=== PATIENT | male | born 1970 | race Caucasian/White ===

== ENCOUNTER → 2019-08-04 10:38 | Outpatient (CLI) | payer OTHER, SELFPAY ==
[2019-08-04 12:26] LABS: Absolute Neutrophil Count 4.8 X10^3/uL (2.0-7.7); Basophil# 0.08 X10^3/uL; Eosinophil# 0.37 X10^3/uL; Eosinophils% 4.6 % (0-5); Hemoglobin 15.7 g/dL (13.0-16.5); Lymphocyte % 27.3 % (19-41); Mean Corp Hgb Conc 33.4 g/dL (32-36); Mean Corpuscular Hgb 28.7 pg (27.0-32.0); Mean Corpuscular Volume 85.9 fL (80-94); Mean Platelet Vol. 10.4 fl (6.2-12.0); Monocyte# 0.59 X10^3/uL; Monocyte% 7.3 % (0-10); NRBC Flagged by Analyzer 0 % (0-5); Neutrophil # 4.79 X10^3/uL (2.7-7.7); Neutrophil % 59.6 % (47-70); Platelet Count 283 K/mm3 (150-450); RBC Distribution Width CV 12.9 % (11.6-14.6); RBC Distribution Width SD 40.4 fl (35.1-43.9); Red Blood Count 5.47 M/mm3 (4.6-6.2); White Blood Count 8.1 K/mm3 (4.4-11.0)
[2019-08-04 12:39] LABS: ALB/GLOB Ratio 0.8 RATIO (0.9-2.4); AST(SGOT) 19 U/L (15-37); Alanine Aminotransfer ALT/SGPT 30 U/L (16-61); Albumin, Serum 3.6 g/dL (3.2-5.0); Alkaline Phosphatase 102 U/L (45-117); Anion Gap 7 (5-15); BUN 23 mg/dL (7-18); BUN/Creat Ratio 20.9 RATIO (10-20); Calcium,Total 8.9 mg/dL (8.5-10.1); Chloride 106 mmol/L (98-107); Cholesterol 162 mg/dL (200); EST Glomerular Filtration Rate 75 mL/min (>60); Est Glom Filt Rate - Afr Amer 91 mL/min (>60); Globulin 4.5 g/dL (2.2-4.2); Glucose 95 mg/dL (74-106); High Density Lipoprotein 34 mg/dL; PSA,Total - Annual Screen 1.35 ng/mL (0.00-4.00); Potassium 3.8 mmol/L (3.5-5.1); Protein, Total 8.1 g/dL (6.4-8.2); Sodium Level 137 mmol/L (136-145); Triglycerides 354 mg/dL; Very Low Density Lipoprotein 71 mg/dL (5-40)
[2019-08-04 12:44] LABS: Microalbumin,Random Urine 10.9 mg/L (NO RANGE EST.); Microalbumin:Creatinine Ratio 5.2 mg/g CRE (<30 mg/g CRE)
== END ==
PROVIDERS: Family Provider Family Medicine; PCP Family Medicine; Visit Provider Family Medicine
DX: Z00.00 Encounter for general adult medical examination without abnormal findings (principal); I10 Essential (primary) hypertension; Z12.5 Encounter for screening for malignant neoplasm of prostate
CPT/HCPCS: 36415; 80053; 80061; 82043; 82570; 84153; 85025; G0103

== ENCOUNTER 2019-09-30 06:02 | Day surgery (SDC) | payer OTHER, SELFPAY ==
[2019-09-30] VITALS (8 sets, daily range): BP systolic 102–127; BP diastolic 71–88; PULSE 66–83; RESP 16; TEMP 36.2–36.9; O2SAT 92–100; BMI 36.8
--- NOTE | 2019-09-30 06:26 | PCM.HP.STD ---
Problem List (1) Screening for intestinal cancer Status: Acute History of Present Illness Date of Admission: 09/30/19 The patient is a 49 year old M who presents today for screening colonoscopy. He denies bright red blood per rectum or melena. No abdominal pain. No change in body habitus. He has never had a previous colonoscopy. Past Medical History Allergies RAGWEED Allergy (Uncoded 09/26/19 11:33) Chest tightness Home Medications: Ambulatory Orders Medication Instructions Recorded Amlodipine Besylate/Benazepril 1 ea PO DAILY 09/26/19 [Amlodipine-Benazepril 10-40 mg] Cetirizine HCl [Zyrtec] 10 mg PO DAILY 09/26/19 Multivitamin/Iron/Folic Acid 1 ea PO DAILY 09/26/19 [Centrum Adults Tablet] Pravastatin [Pravachol] 40 mg PO QHS 09/26/19 Smoking Status: Unknown if ever smoked Tobacco Use: Non-smoker Review of Systems HEENT: Denies: Difficulty Swallowing Cardiovascular: Denies: Chest Pain Respiratory: Denies: Cough Gastrointestinal: Denies: Abdominal Pain Endocrine: Denies: Change in Body Habitus VTE Information - Inpt Only VTE Present on Admission: No Patient Problems: Active and Suspected Problems Screening for intestinal cancer (Acute) - Physical Exam General: Alert, Oriented x3, Cooperative Oral: Moist Mucosa Lungs: Clear to auscultation Cardiovascular: Regular rate, Regular Rhythm Abdomen: Bowel Sounds Present, Soft, Non Tender Psych/Mental Status: Anxious Assessment/Plan All Active Problems Screening for intestinal cancer (Acute) I recommend for the patient today is screening colonoscopy with possible biopsy or polypectomy is indicated. He is aware of the technique, benefits, risks, alternatives. He presents via our open access program today. We will proceed as noted. Parker Grant M.D., F.A.C.S.
[2019-09-30] MEDS: Lactated Ringers 1,000 ML 100 ML IV (06:52)
--- NOTE | 2019-09-30 07:00 | COLBX_PTH ---
PATIENT: TOM SALAZAR LOC: EN U#:[id number] AGE/SX: 49/M ROOM: RE09/30/[address]: Dr. Parker Grant MD : 1970 BED: DIS: 09/30/2019 SPEC #: [id number] RECD: 09/30/19 11:12 STATUS: SAE TEJ #: [id number] KAROLINA: 09/30/19 07:[address]: Parker Grant DEPT: SURGICAL PATHOLOGY RECD BY: Paco Evans ENTERED: 09/30/19 12:29 SP TYPE: COLON BX OTHR DR: Dr. Sheldon Khan MD Tissues: Transverse colon Procedures: Surgery Specimen Level IV HEADER OPERATION: Colonoscopy - open access (MOD) PRE-OP DIAGNOSIS: Screening TISSUE SUBMITTED: Biopsy of mid transverse colon polyp MICROSCOPIC DIAGNOSIS Mid transverse colon polyp, biopsy: Fragments of colonic mucosa, no pathologic diagnosis. See comment. RUSLAN:carlos 10/01/19 COMMENT Prominent lymphoid aggregates are noted, favor benign. MICROSCOPIC DESCRIPTION Slides are reviewed. GROSS DESCRIPTION Received in fixative is one container labeled with the patient's name and designated biopsy of mid transverse colon polyp. The specimen consists of multiple irregular fragments of light schultz soft tissue that in aggregate measure 1 x 0.3 x 0.1 cm. The specimen is totally submitted in one cassette. / SJ:carlos 09/30/19 TC:4 CPT: 83364
--- NOTE | 2019-09-30 08:02 | OP.COLON_ITS ---
Patient Name: Vasyl Cuellar Procedure Date: 09/30/2019 6:57 AM Date of : 1970 Age: 49 Procedure: Colonoscopy Indications: Screening for colorectal malignant neoplasm Providers: Parker Grant MD Referring MD: Sheldon Khan Medicines: Midazolam 3.5 mg IV, Meperidine 100 mg IV Patient Profile: Last Colonoscopy: none. The patient's first colonoscopy is today. Complications: No immediate complications. Procedure: Pre-Anesthesia Assessment: - Prior to the procedure, a History and Physical was performed, and patient medications and allergies were reviewed. The patient's tolerance of previous anesthesia was also reviewed. The risks and benefits of the procedure and the sedation options and risks were discussed with the patient. All questions were answered, and informed consent was obtained. Prior Anticoagulants: The patient has taken no previous anticoagulant or antiplatelet agents. ASA Grade Assessment: II - A patient with mild systemic disease. After reviewing the risks and benefits, the patient was deemed in satisfactory condition to undergo the procedure. After I obtained informed consent, the scope was passed under direct vision. Throughout the procedure, the patient's blood pressure, pulse, and oxygen saturations were monitored continuously. The adult colonoscope was introduced through the anus and advanced to the cecum, identified by appendiceal orifice and ileocecal valve. The colonoscopy was performed without difficulty. The patient tolerated the procedure well. The quality of the bowel preparation was good. The ileocecal valve and the appendiceal orifice were photographed. Moderate Sedation: Moderate (conscious) sedation was personally administered by the endoscopist. The following parameters were monitored: oxygen saturation, heart rate, blood pressure, and response to care. Total physician intraservice time was 15 minutes. Scope In: 7:08:25 AM Scope Withdrawal Time 0 hours 10 minutes 18 seconds Scope Out: 7:25:57 AM Total Procedure Duration Time 0 hours 17 minutes 32 seconds Findings: The digital rectal exam findings include non-thrombosed external hemorrhoids, non-thrombosed internal hemorrhoids, internal hemorrhoids that prolapse with straining, but spontaneously regress to the resting position (Grade II) and enlarged prostate. A 3 mm polyp was found in the mid descending colon. The polyp was sessile. The polyp was removed with a cold biopsy forceps. Resection and retrieval were complete. Impression: - Non-thrombosed external hemorrhoids, non-thrombosed internal hemorrhoids, internal hemorrhoids that prolapse with straining, but spontaneously regress to the resting position (Grade II) and enlarged prostate found on digital rectal exam. - Several 3 mm polyp in the mid descending colon, removed with a cold biopsy forceps. Resected and retrieved.See photograph of very small minimally raised areas. Possibly polpys, possibly normal mucosa Recommendation: - Await pathology results. - Repeat colonoscopy in 5 years for surveillance based on pathology results. - Telephone my office for pathology results in 1 week. - Discharge patient to home. - Resume previous diet. - Continue present medications. Procedure Code(s): --- Professional --- 33382, Colonoscopy, flexible; with biopsy, single or multiple 53128, 59, Moderate sedation services provided by the same physician or other qualified health grounds caretaker performing the diagnostic or therapeutic service that the sedation supports, requiring the presence of an independent trained observer to assist in the monitoring of the patient's level of consciousness and physiological status; initial 15 minutes of intraservice time, patient age 5 years or older Diagnosis Code(s): --- Professional --- Z12.11, Encounter for screening for malignant neoplasm of colon D12.4, Benign neoplasm of descending colon K64.1, Second degree hemorrhoids K64.4, Residual hemorrhoidal skin tags N40.0, Benign prostatic hyperplasia without lower urinary tract symptoms CPT copyright 2017 [employer]. All rights reserved. The codes documented in this report are preliminary and upon shift lab technician review may be revised to meet current compliance requirements. Parker Grant MD 09/30/2019 8:02:16 AM This report has been signed electronically. Number of Addenda: 0 Note Initiated On: 09/30/2019 6:57 AM
== END 2019-09-30 08:16 | disposition home or self-care (01) ==
LOC: EN 06:04 → AC 06:06
PROVIDERS: Family Provider Family Medicine; PCP Family Medicine; Referring Provider Family Medicine; Visit Provider Surgery
PROC: 0DJD8ZZ Inspection of Lower Intestinal Tract, Via Natural or Artificial Opening Endoscopic (ICD-10-PCS; CPT 45378; principal; 2019-09-30 06:55)
DX: Z12.11 Encounter for screening for malignant neoplasm of colon (principal); D12.4 Benign neoplasm of descending colon; K64.1 Second degree hemorrhoids; K64.4 Residual hemorrhoidal skin tags; N40.0 Benign prostatic hyperplasia without lower urinary tract symptoms; Z79.899 Other long term (current) drug therapy
CPT/HCPCS: 45380; 88305; 99152; 99153; J7120

== ENCOUNTER → 2020-02-05 09:50 | Outpatient (CLI) | payer OTHER, SELFPAY ==
[2019-09-30 06:38] VITALS: BMI 36.8
--- NOTE | 2020-02-05 09:54 | RAD_ITS ---
STUDY: X-RAY - ESOPHAGUS (BARIUM SWALLOW) WITH FLUOROSCOPY REASON FOR EXAM: Male, 49 years old. DYSPHAGIA. OCCASIONALLY FOOD HANGS UP IN ESOPHAGUS W/ REFLUX/VOMITING. 14 IMAGES, 25 SEC. FL TECHNIQUE: 16 view(s) of the esophagus were obtained following swallowing of barium. FLUOROSCOPY TIME (if supplied): (0:25) minutes/seconds COMPARISON: None. FINDINGS: There is no demonstrated esophageal foreign body. There is no demonstrated stricture or mucosal abnormality. Normal gastroesophageal junction, without a demonstrated hiatal hernia. The patient ingested a 12 mm tablet of barium without any difficulty. Normal visualized aortic arch and descending thoracic aorta. Normal visualized pulmonary parenchyma. There are diffuse degenerative changes of the visualized thoracic spine. RAD/Esophagus Dual Contrast IMPRESSION: Normal plain film x-ray examination (barium swallow) of the esophagus. Electronically Signed: Víctor Baltazar, at 11:02 EDT , Service support ,
== END ==
PROVIDERS: PCP Family Medicine; Referring Provider Family Medicine; Visit Provider Family Medicine
DX: R13.10 Dysphagia, unspecified (principal)
CPT/HCPCS: 74221

== ENCOUNTER → 2020-03-02 10:48 | Outpatient (CLI) | payer OTHER, SELFPAY ==
[2019-09-30 06:38] VITALS: BMI 36.8
[2020-03-02 12:04] LABS: ALB/GLOB Ratio 0.9 RATIO (0.9-2.4); AST(SGOT) 26 U/L (15-37); Alanine Aminotransfer ALT/SGPT 39 U/L (16-61); Albumin, Serum 3.8 g/dL (3.2-5.0); Alkaline Phosphatase 102 U/L (45-117); Anion Gap 7 (5-15); BUN 20 mg/dL (7-18); BUN/Creat Ratio 19.6 RATIO (10-20); Calcium,Total 8.8 mg/dL (8.5-10.1); Chloride 106 mmol/L (98-107); Creatinine, Serum 1.02 mg/dL (0.70-1.30); EST Glomerular Filtration Rate 82 mL/min (>60); Est Glom Filt Rate - Afr Amer 99 mL/min (>60); Globulin 4.1 g/dL (2.2-4.2); Glucose 115 mg/dL (74-106); Potassium 3.4 mmol/L (3.5-5.1); Protein, Total 7.9 g/dL (6.4-8.2); Sodium Level 138 mmol/L (136-145)
== END ==
PROVIDERS: PCP Family Medicine; Referring Provider Family Medicine; Visit Provider Family Medicine
DX: I10 Essential (primary) hypertension (principal)
CPT/HCPCS: 36415; 80053

== ENCOUNTER → 2020-09-08 10:39 | Outpatient (CLI) | payer OTHER, SELFPAY ==
[2019-09-30 06:38] VITALS: BMI 36.8
[2020-09-08 12:51] LABS: ALB/GLOB Ratio 0.9 RATIO (0.9-2.4); AST(SGOT) 16 U/L (15-37); Alanine Aminotransfer ALT/SGPT 30 U/L (16-61); Albumin, Serum 3.5 g/dL (3.2-5.0); Alkaline Phosphatase 109 U/L (45-117); Anion Gap 7 (5-15); BUN 17 mg/dL (7-18); BUN/Creat Ratio 15.3 RATIO (10-20); Calcium,Total 9.1 mg/dL (8.5-10.1); Chloride 103 mmol/L (98-107); Cholesterol 135 mg/dL (200); Creatinine, Serum 1.11 mg/dL (0.70-1.30); EST Glomerular Filtration Rate 74 mL/min (>60); Est Glom Filt Rate - Afr Amer 89 mL/min (>60); Globulin 3.9 g/dL (2.2-4.2); Glucose 98 mg/dL (74-106); High Density Lipoprotein 32 mg/dL; Potassium 3.5 mmol/L (3.5-5.1); Protein, Total 7.4 g/dL (6.4-8.2); Sodium Level 137 mmol/L (136-145); Triglycerides 356 mg/dL; Very Low Density Lipoprotein 71 mg/dL (5-40)
[2020-09-08 12:52] LABS: Microalbumin,Random Urine 8.8 mg/L (NO RANGE EST.); Microalbumin:Creatinine Ratio 3.8 mg/g CRE (<30 mg/g CRE)
== END ==
PROVIDERS: PCP Family Medicine; Referring Provider Family Medicine; Visit Provider Family Medicine
DX: I10 Essential (primary) hypertension (principal)
CPT/HCPCS: 36415; 80053; 80061; 82043; 82570

== ENCOUNTER → 2021-06-22 09:24 | Outpatient (CLI) | payer OTHER, SELFPAY ==
[2019-09-30 06:38] VITALS: BMI 36.8
[2021-06-22 10:15] LABS: Absolute Lymphocyte Count 2.46 X10^3/uL (0.83-4.51); Absolute Neutrophil Count 6.1 X10^3/uL (2.0-7.7); Basophil# 0.06 X10^3/uL; Basophil% 0.6 % (0-1); Eosinophils% 6.1 % (0-5); Hematocrit 46.2 % (40-54); Lymphocyte # 2.46 X10^3/ul (0.83-4.51); Lymphocyte % 24.8 % (19-41); Mean Corp Hgb Conc 34.6 g/dL (32-36); Mean Corpuscular Hgb 29.8 pg (27.0-32.0); Mean Platelet Vol. 10.3 fl (6.2-12.0); Monocyte# 0.68 X10^3/uL; Monocyte% 6.9 % (0-10); NRBC Flagged by Analyzer 0 % (0-5); Neutrophil # 6.06 X10^3/uL (2.7-7.7); Neutrophil % 61.2 % (47-70); Platelet Count 299 K/mm3 (150-450); RBC Distribution Width CV 13.2 % (11.6-14.6); RBC Distribution Width SD 41.1 fl (35.1-43.9); Red Blood Count 5.37 M/mm3 (4.6-6.2); White Blood Count 9.9 K/mm3 (4.4-11.0)
[2021-06-22 10:40] LABS: Hemoglobin A1c 5.5 % (3.8-5.6)
[2021-06-22 10:51] LABS: ALB/GLOB Ratio 0.9 RATIO (0.9-2.4); AST(SGOT) 18 U/L (15-37); Alanine Aminotransfer ALT/SGPT 36 U/L (16-61); Albumin, Serum 3.7 g/dL (3.2-5.0); Alkaline Phosphatase 117 U/L (45-117); Anion Gap 9 (5-15); BUN 19 mg/dL (7-18); BUN/Creat Ratio 17.8 RATIO (10-20); Calcium,Total 9.3 mg/dL (8.5-10.1); Chloride 105 mmol/L (98-107); Cholesterol 120 mg/dL (200); Creatinine, Serum 1.07 mg/dL (0.70-1.30); EST Glomerular Filtration Rate 77 mL/min (>60); Est Glom Filt Rate - Afr Amer 93 mL/min (>60); Globulin 4.1 g/dL (2.2-4.2); Glucose 113 mg/dL (74-106); High Density Lipoprotein 31 mg/dL; Potassium 3.7 mmol/L (3.5-5.1); Protein, Total 7.8 g/dL (6.4-8.2); Sodium Level 138 mmol/L (136-145); Triglycerides 268 mg/dL; Very Low Density Lipoprotein 54 mg/dL (5-40)
[2021-06-22 12:02] LABS: Hepatitis C Antibody Non-Reactive (Nonreactive)
[2021-06-22 13:53] LABS: Microalbumin,Random Urine 14.1 mg/L (NO RANGE EST.); Microalbumin:Creatinine Ratio 5.5 mg/g CRE (<30 mg/g CRE)
== END ==
PROVIDERS: PCP Family Medicine; Referring Provider Family Medicine; Visit Provider Family Medicine
DX: M54.2 Cervicalgia (principal); I10 Essential (primary) hypertension; E78.00 Pure hypercholesterolemia, unspecified; E66.01 Morbid (severe) obesity due to excess calories; Z11.59 Encounter for screening for other viral diseases
CPT/HCPCS: 36415; 80053; 80061; 82043; 82570; 83036; 85025; 86803

== ENCOUNTER 2021-12-08 16:12 | Outpatient (CLI) | payer OTHER, SELFPAY ==
[2021-12-08 18:05] LABS: Anion Gap 8 (5-15); BUN 23 mg/dL (7-18); BUN/Creat Ratio 21.7 RATIO (10-20); Calcium,Total 9.1 mg/dL (8.5-10.1); Chloride 107 mmol/L (98-107); Creatinine, Serum 1.06 mg/dL (0.70-1.30); EST Glomerular Filtration Rate 77 mL/min (>60); Est Glom Filt Rate - Afr Amer 94 mL/min (>60); Glucose 87 mg/dL (74-106); Potassium 3.9 mmol/L (3.5-5.1); Sodium Level 136 mmol/L (136-145)
== END 2021-12-08 23:59 | disposition short-term general hospital (02) ==
PROVIDERS: PCP Family Medicine; Referring Provider Family Medicine; Visit Provider Family Medicine
DX: J39.9 Disease of upper respiratory tract, unspecified (principal); I10 Essential (primary) hypertension
CPT/HCPCS: 36415; 80048

== ENCOUNTER → 2022-06-08 | Outpatient (CLI) | payer OTHER, SELFPAY ==
[2022-06-08 18:21] LABS: ALB/GLOB Ratio 0.9 RATIO (0.9-2.4); AST(SGOT) 18 U/L (15-37); Alanine Aminotransfer ALT/SGPT 34 U/L (16-61); Albumin, Serum 3.7 g/dL (3.2-5.0); Alkaline Phosphatase 115 U/L (45-117); Anion Gap 6 (5-15); BUN 24 mg/dL (7-18); BUN/Creat Ratio 21.2 RATIO (10-20); Chloride 108 mmol/L (98-107); Creatinine, Serum 1.13 mg/dL (0.70-1.30); EST Glomerular Filtration Rate 72 mL/min (>60); Est Glom Filt Rate - Afr Amer 87 mL/min (>60); Globulin 3.9 g/dL (2.2-4.2); Glucose 107 mg/dL (74-106); Protein, Total 7.6 g/dL (6.4-8.2); Sodium Level 137 mmol/L (136-145)
[2022-06-08 18:39] LABS: Microalbumin,Random Urine 17.4 mg/L (NO RANGE EST.)
== END | disposition home or self-care (01) ==
LOC: MTLAB 16:23
PROVIDERS: PCP Family Medicine; Referring Provider Family Medicine; Visit Provider Family Medicine
DX: Z00.00 Encounter for general adult medical examination without abnormal findings (principal); I10 Essential (primary) hypertension
CPT/HCPCS: 36415; 80053; 82043; 82570

== ENCOUNTER → 2022-12-11 | Outpatient (CLI) | payer OTHER, SELFPAY ==
[2022-12-11 18:33] LABS: Anion Gap 10 (5-15); BUN 21 mg/dL (7-18); BUN/Creat Ratio 21.5 RATIO (10-20); Calcium,Total 9.4 mg/dL (8.5-10.1); Chloride 107 mmol/L (98-107); Creatinine, Serum 0.98 mg/dL (0.70-1.30); EST Glomerular Filtration Rate 85 mL/min (>60); Est Glom Filt Rate - Afr Amer 103 mL/min (>60); Glucose 108 mg/dL (74-106); Potassium 3.9 mmol/L (3.5-5.1); Sodium Level 139 mmol/L (136-145)
== END | disposition home or self-care (01) ==
LOC: MFPLAB 14:41
PROVIDERS: PCP Family Medicine; Visit Provider Family Medicine
DX: I10 Essential (primary) hypertension (principal)
CPT/HCPCS: 36415; 80048

== ENCOUNTER → 2023-06-13 | Outpatient (CLI) | payer OTHER, SELFPAY ==
[2023-06-13 10:55] LABS: Microalbumin,Random Urine 10.4 mg/L (NO RANGE EST.)
[2023-06-13 10:58] LABS: ALB/GLOB Ratio 0.8 RATIO (0.9-2.4); AST(SGOT) 16 U/L (15-37); Alanine Aminotransfer ALT/SGPT 26 U/L (16-61); Albumin, Serum 3.5 g/dL (3.2-5.0); Alkaline Phosphatase 125 U/L (45-117); Anion Gap 7 (5-15); BUN 16 mg/dL (7-18); BUN/Creat Ratio 16.9 RATIO (10-20); Calcium,Total 8.7 mg/dL (8.5-10.1); Chloride 108 mmol/L (98-107); Cholesterol 115 mg/dL (200); Creatinine, Serum 0.95 mg/dL (0.70-1.30); EST Glomerular Filtration Rate 88 mL/min (>60); Est Glom Filt Rate - Afr Amer 106 mL/min (>60); Globulin 4.2 g/dL (2.2-4.2); Glucose 94 mg/dL (74-106); High Density Lipoprotein 29 mg/dL; PSA,Total - Annual Screen 1.34 ng/mL (0.00-4.00); Potassium 3.7 mmol/L (3.5-5.1); Protein, Total 7.7 g/dL (6.4-8.2); Sodium Level 137 mmol/L (136-145); Triglycerides 167 mg/dL; Very Low Density Lipoprotein 33 mg/dL (5-40)
== END | disposition home or self-care (01) ==
LOC: MFPLAB 09:12
PROVIDERS: PCP Family Medicine; Visit Provider Family Medicine
DX: I10 Essential (primary) hypertension (principal); Z12.5 Encounter for screening for malignant neoplasm of prostate
CPT/HCPCS: 36415; 80053; 80061; 82043; 82570; 84153; G0103

== ENCOUNTER → 2023-12-17 | Outpatient (CLI) | payer OTHER, SELFPAY ==
--- OUTSIDE RECORDS SUMMARY | 2023-12-17 16:39 | XMS RPT_ITS | CCD ---
Author Name Unknown Address [address] [place] [id number] Organization [facility] Care Team Providers Care Principal Technical Specialist Name Role Phone Dereje Zavala Primary Care Provider [phone] Medications Completed/Discontinued Medications Medication Drug Class(es) Dates Sig (Normalized) Sig (Original) amLODIPine 10 mg / benazepril hydrochloride 40 mg oral capsule (2 sources) Dihydropyridine Calcium Channel Gino, Angiotensin Converting Enzyme Inhibitor Start: 06-26-2023 amLODIPine-Benaze pril 10-40 mg per capsule atorvastatin 40 mg oral tablet (2 sources) HMG-CoA Reductase Inhibitor Start: 08-26-2023 atorvastatin (LIPITOR) 40 mg tablet benzonatate 100 mg oral capsule (2 sources) Non-narcotic Antitussive Start: 09-04-2023 take 2 capsules by mouth every eight hours as needed benzonatate (TESSALON PERLE) 100 mg capsule Take 2 capsules by mouth three times a day as needed. 30 capsule 0 09/04/2023 Active Problems Problem Classification Problem Date Documented Da te Episodic/Chronic Other upper respiratory infections (1 source) Upper respiratory infection; Translations: [Acute upper respiratory infection, unspecified] 09-04-2023 Episodic Residual codes; unclassified (1 source) Procedure not done; Translations: [Procedure and treatment not carried out, unspecified reason] Episodic Results Test Name Value Interpretation Reference Range Facil ity Vital Signs Date Time Vital Sign Value Performing Clinician Sudhakar smith 09-04-2023 11:49-0400 Body temperature 97.7 [degF] Ivon Christopher APRN.CNP Work Phone: [facility] 09-04-2023 11:49-0400 Body weight 116.12 kg Ivon Christopher APRN.CNP Work Phone: [facility] 09-04-2023 11:49-0400 Diastolic blood pressure 80 mm[Hg] Ivon Christopher APRN.CNP Work Phone: [facility] 09-04-2023 11:49-0400 Heart rate 72 /min Ivon Christopher APRN.CNP Work Phone: [facility] 09-04-2023 11:49-0400 Respiratory rate 16 /min Ivon Christopher APRN.TYRON Work Phone: [facility] 09-04-2023 11:49-0400 SaO2% (BldA) [Mass fraction] 98 % Ivon Christopher APRN.CNP Work Phone: [facility] 09-04-2023 11:49-0400 Systolic blood pressure 120 mm[Hg] Ivon Christopher APRN.CNP Work Phone: [facility] Encounters Encounter Date Encounter Type Care Provider Facility Start: 09-05-2023 Telephone encounter Darryl diaz APRN.CNP Work Phone: [facility] Plan of Treatment Date Care Activity Detail Author Start: 07-29-2029 Urine microalbumin profile DTaP,Tdap,Td Vaccine (2 - Td or Tdap) [facility] Start: 09-04-2023 End: 09-18-2023 SARS-CoV-2 (COVID-19) RNA [Presence] in Respiratory specimen by MELY with probe detection [facility] Work Phone: Immunizations Immunization Date Immunization Notes Care Provider Sonia limon 09-01-2020 influenza virus vacc ine, unspecified formulation Ivon Christopher APRN.PRINT PROJECT MANAGER Work Phone: [facility] Payers Date Payer Category Payer Private Health Insurance [employer] A ETNA CHOICE POS II [id number] 2021-Present [phone] [address] [place] [address] POS [id number] 2021 Private Health Insurance [employer] A ETNA POS [id number] 2021-Present [phone] [address] [place] [address] POS [id number] 2021 Private Health Insurance [id number] Social History Date Type Detail Facility Tobacco smoking status NHIS Tobacco smoking consumption unknown [facility] Work Phone: Start: 1970 Sex Assigned At Not on file [facility] Gender identity Not on file [facility] inic Note 09-05-2023 Telephone Encounter - Marizol Gutierrez MA - 09/05/2023 11:15 AM EDTTelephone Encounter - Darryl Yan APRN.CNP - 09/05/2023 7:12 AM EDT Note Date & Type Note Facility 09-05-2023 Miscellaneous Notes Formattin g of this note might be different from the original. Patient notified of results, verbalized understanding of information as listed below. Marizol Gutierrez MA You tested positive for COVID-19 Follow the CDC guidelines for isolation: 1. Everyone, regardless of vaccination status, should stay home for 5 days. 2. If you have no symptoms or your symptoms are resolving after 5 days, you can leave your house. 3. Continue to wear a mask around others for 5 additional days. If you have a fever, continue to stay home until your fever resolves, even if it is longer than 5 days. Please monitor your symptoms, and for any worrisome symptoms, call your primary care provider or schedule a visit with [facility]. A test is not recommended to return to work/school when meeting the above criteria. documented in this encounter [facility] Progress note 09-04-2023 Note Date & Type Note Facility 09-04-2023 Note HNO ID: [id number] Author: Ivon Christopher APRN.CNP Service: ? Author Type: Nurse Practitioner Type: Progress Notes Filed: 09/04/2023 12:01 PM Note Text: Subjective The history is provided by the patient. No computer language coder was used. HPI Vasyl Cuellar is a 53 year old male who presents today for CC of cough and congestion Symptoms include: Fever (=100.4F): No or Chills: No Cough: Yes Shortness of breath: No or Difficulty breathing: No Fatigue: Yes Muscle aches: No Headache: No New loss of smell or taste: No Sore throat: No Nasal congestion: Yes or Rhinorrhea: Yes Nausea: No or Vomiting: No Diarrhea: No OTC meds/remedies that patient has tried: acetaminophen and NSAIDs. High risk category assessment obese Exposures: Sick contacts? Yes Family or close contacts with confirmed/probable COVID-19 in last 14 days? No BP 120/80 Pulse 72 Temp 36.5 ?C (97.7 ?F) Resp 16 Wt 116.1 kg (256 lb) SpO2 98% History reviewed. No pertinent past medical history. I have confirmed and edited as necessary, the [facility] Review of Systems Constitutional: Negative for chills and fever. HENT: Negative for congestion, ear pain, sinus pain and sore throat. Respiratory: Negative for cough, sputum production, shortness of breath and wheezing. Cardiovascular: Negative for chest pain. Musculoskeletal: Negative for myalgias. Neurological: Negative for headaches. Objective Physical Exam Vitals and nursing note reviewed. Constitutional: Appearance: He is not toxic-appearing. HENT: Head: Normocephalic and atraumatic. Right Ear: Tympanic membrane, ear canal and external ear normal. Left Ear: Tympanic membrane, ear canal and external ear normal. Nose: Mucosal edema, congestion and rhinorrhea present. Right Sinus: No maxillary sinus tenderness or frontal sinus tenderness. Left Sinus: No maxillary sinus tenderness or frontal sinus tenderness. Mouth/Throat: Pharynx: Uvula midline. No oropharyngeal exudate or posterior oropharyngeal erythema. Tonsils: No tonsillar abscesses. Cardiovascular: Rate and Rhythm: Normal rate and regular rhythm. Heart sounds: Normal heart sounds. Pulmonary: Effort: Pulmonary effort is normal. Breath sounds: Normal breath sounds. No decreased breath sounds, wheezing, rhonchi or rales. Lymphadenopathy: Head: Right side of head: No submental, submandibular, tonsillar or preauricular adenopathy. Left side of head: No submental, submandibular, tonsillar or preauricular adenopathy. Cervical: No cervical adenopathy. Right cervical: No superficial cervical adenopathy. Left cervical: No superficial cervical adenopathy. Neurological: Mental Status: He is alert. ASSESSMENT/PLAN: 1. URI with cough and congestion - ICD9: 465.9, ICD10: J06.9 - Discussed viral etiology and rationale for treatment. - Symptomatic treatment with prn analgesia - Supportive care with fluids and rest Home isolation Testing ordered Comfort measures discussed - see patient instructions. When to seek higher level of care Notified in 12-24 hours with results, available on [employer] prn mucinex - COVID NAAT, UPPER RESPIRATORY, ROUTINE Diagnosis and treatment plan were discussed and questions were answered to the patient's satisfaction. Pt acknowledged understanding of concepts and follow up plan. Specific signs and symptoms that would indicate the need for higher level of care were discussed in detail warranting prompt ER evaluation. Ivon Christopher APRN.PRINT PROJECT MANAGER [facility] Instructions 09-04-2023 Patient Instructions Note Date & Type Note Facility 09-04-2023 Instructions Ivon Christopher APRN.PRINT PROJECT MANAGER - 09/04/2023 11:56 AM EDT covid and influenza test ordered You will be notified in 12-24 hours, results available on [employer] Home isolation until results are back Rest, increase water intake Motrin or Tylenol as needed for fever or pain. Salt water gargles, chloraseptic spray or lozenges as needed for sore throat. Warm beverages, honey. Nasal saline spray as needed Cool mist humidifier at night Tylenol (generic acetaminophen) 500 mg-2 tabs every 8 hrs. as needed for fever and aches Ibuprofen 600 mg (3-200mg tablets) every 6 hours -Mucinex (generic is fine) Guaifenesin 1200 mg twice daily to help with cough and to thin out mucus Tessalon Perles 1-2 every 8 hours, do not combine this with robitussin or delsym * Seek medical care immediately, call 911, go to ER if you have chest pain, difficulty breathing, shortness of breath, inability to swallow. documented in this encounter [facility] History of Present illness Narrative 09-04-2023 Ivon Christopher APRN.CNP - 09/04/2023 11:55 AM EDT Note Date & Type Note Facility 09-04-2023 History of Presen t illness Narrative Subjective The history is provided by the patient. No computer language coder was used. HPI Vasyl Cuellar is a 53 year old male who presents today for CC of cough and congestion Symptoms include: Fever (=100.4F): No or Chills: No Cough: Yes Shortness of breath: No or Difficulty breathing: No Fatigue: Yes Muscle aches: No Headache: No New loss of smell or taste: No Sore throat: No Nasal congestion: Yes or Rhinorrhea: Yes Nausea: No or Vomiting: No Diarrhea: No OTC meds/remedies that patient has tried: acetaminophen and NSAIDs. High risk category assessment obese Exposures: Sick contacts? Yes Family or close contacts with confirmed/probable COVID-19 in last 14 days? No BP 120/80 Pulse 72 Temp 36.5 C (97.7 F) Resp 16 Wt 116.1 kg (256 lb) SpO2 98% History reviewed. No pertinent past medical history. I have confirmed and edited as necessary, the [facility] Review of Systems Constitutional: Negative for chills and fever. HENT: Negative for congestion, ear pain, sinus pain and sore throat. Respiratory: Negative for cough, sputum production, shortness of breath and wheezing. Cardiovascular: Negative for chest pain. Musculoskeletal: Negative for myalgias. Neurological: Negative for headaches. Objective Physical Exam Vitals and nursing note reviewed. Constitutional: Appearance: He is not toxic-appearing. HENT: Head: Normocephalic and atraumatic. Right Ear: Tympanic membrane, ear canal and external ear normal. Left Ear: Tympanic membrane, ear canal and external ear normal. Nose: Mucosal edema, congestion and rhinorrhea present. Right Sinus: No maxillary sinus tenderness or frontal sinus tenderness. Left Sinus: No maxillary sinus tenderness or frontal sinus tenderness. Mouth/Throat: Pharynx: Uvula midline. No oropharyngeal exudate or posterior oropharyngeal erythema. Tonsils: No tonsillar abscesses. Cardiovascular: Rate and Rhythm: Normal rate and regular rhythm. Heart sounds: Normal heart sounds. Pulmonary: Effort: Pulmonary effort is normal. Breath sounds: Normal breath sounds. No decreased breath sounds, wheezing, rhonchi or rales. Lymphadenopathy: Head: Right side of head: No submental, submandibular, tonsillar or preauricular adenopathy. Left side of head: No submental, submandibular, tonsillar or preauricular adenopathy. Cervical: No cervical adenopathy. Right cervical: No superficial cervical adenopathy. Left cervical: No superficial cervical adenopathy. Neurological: Mental Status: He is alert. ASSESSMENT/PLAN: 1. URI with cough and congestion - ICD9: 465.9, ICD10: J06.9 - Discussed viral etiology and rationale for treatment. - Symptomatic treatment with prn analgesia - Supportive care with fluids and rest Home isolation Testing ordered Comfort measures discussed - see patient instructions. When to seek higher level of care Notified in 12-24 hours with results, available on [employer] prn mucinex - COVID NAAT, UPPER RESPIRATORY, ROUTINE Diagnosis and treatment plan were discussed and questions were answered to the patient's satisfaction. Pt acknowledged understanding of concepts and follow up plan. Specific signs and symptoms that would indicate the need for higher level of care were discussed in detail warranting prompt ER evaluation. Ivon Christopher APRN.CNP documented in this encounter [facility] History of Present illness Narrative 05-05-2022 Dilan Squires APRN.CNP - 05/05/2022 12:54 PM EDT Note Date & Type Note Facility 05-05-2022 History of Presen t illness Narrative Nontoxic-appearing male presents urgent care chief complaint transient abdominal pain. Duration of symptoms 3 days. Associated symptoms sharp abdominal pain. Patient states abdominal pain comes in waves. Denies any other concerns. With patient's presenting symptoms I recommended patient be seen by PCP today or if unable to be seen in ED to rule out kidney stones diverticulitis or other acute abdominal processes. Patient verbalized understanding agrees with plan of care. Dilan Squires APRN.CNP documented in this encounter [facility] Evaluation note Note Date & Type Note Facility documented in this encounter [facility] Evaluation note Note Date & Type Note Facility documented in this encounter [facility] Health Concerns Infection Onset Date Last Indicated Resolved Time COVID-19 Rule-Out 09/04/2023 09/04/2023 Infection Onset Date Last Indicated Resolved Time COVID-19 Rule-Out 09/04/2023 09/04/2023 09/05/2023 1:52 AM EDT COVID-19 Confirmed 09/04/2023 09/04/2023 Summary Purpose Family History No Family History Records Found Advance Directives No Advanced Directives Records Found Additional Source Comments Source Comments (unrecognize d section and content) In the event this informatio n is protected by the Federal Confidentiality of Alcohol and Drug Abuse Patient Records regulations: The Federal rules restrict any use of the information to criminally investigate or prosecute any alcohol or drug abuse patient.[facility] the event this information is protected by the Federal Confidentiality of Alcohol and Drug Abuse Patient Records regulations: The Federal rules restrict any use of the information to criminally investigate or prosecute any alcohol or drug abuse patient.[facility] the event this information is protected by the Federal Confidentiality of Alcohol and Drug Abuse Patient Records regulations: The Federal rules restrict any use of the information to criminally investigate or prosecute any alcohol or drug abuse patient.[facility] Care Teams (unrecognized sec tion and content) Principal Technical Specialist Relationship Specialty Start Date End Date Dereje Zavala [address] [place] [address] DELANO GARCIA [id number] PCP - General 03/02/05 Principal Technical Specialist Relationship Specialty Start Date End Date Dereje Zavala [address] [place] [address] DELANO GARCIA [id number] PCP - General 03/02/05 Reason for Visit (unrecogniz ed section and content) Reason Comments Results (unrecognized sect ion and content) No Status Records Found INFORMATION SOURCE (unrecogn ized section and content) FOR RECORDS PERTAINING TO PATIENTS WHO ARE OR HAVE BEEN ENROLLED IN A CHEMICAL DEPENDENCY/SUBSTANCEABUSE PROGRAM, SOME INFORMATION MAY BE OMITTED. This clinical summary was aggregated from multiple sources. Caution should be exercised in using it in the provision of clinical care. This summary normalizes information from multiple sources, and as a consequence, information in this document may materially change the coding, format and clinical context of patient data. In addition, data may be omitted in some cases. CLINICAL DECISIONS SHOULD BE BASED ON THE PRIMARY CLINICAL RECORDS. [facility]. provides no warranty or guarantee of the accuracy or completeness of information in this document.
[2023-12-17 17:46] LABS: Absolute Lymphocyte Count 2.73 X10^3/uL (0.83-4.51); Absolute Neutrophil Count 5.3 X10^3/uL (2.0-7.7); Basophil# 0.07 X10^3/uL; Basophil% 0.7 % (0-1); Eosinophils% 6.4 % (0-5); Hematocrit 50.2 % (40-54); Hemoglobin 16.7 g/dL (13.0-16.5); Lymphocyte # 2.73 X10^3/ul (0.83-4.51); Lymphocyte % 29.2 % (19-41); Mean Corp Hgb Conc 33.3 g/dL (32-36); Mean Corpuscular Hgb 29.4 pg (27.0-32.0); Mean Corpuscular Volume 88.4 fL (80-94); Monocyte# 0.58 X10^3/uL; Monocyte% 6.2 % (0-10); NRBC Flagged by Analyzer 0 % (0-5); Neutrophil # 5.32 X10^3/uL (2.7-7.7); Platelet Count 288 K/mm3 (150-450); RBC Distribution Width CV 13.2 % (11.6-14.6); RBC Distribution Width SD 42.6 fl (35.1-43.9); Red Blood Count 5.68 M/mm3 (4.6-6.2); White Blood Count 9.4 K/mm3 (4.4-11.0)
[2023-12-17 18:16] LABS: ALB/GLOB Ratio 0.9 RATIO (0.9-2.4); AST(SGOT) 28 U/L (15-37); Alanine Aminotransfer ALT/SGPT 47 U/L (16-61); Albumin, Serum 3.8 g/dL (3.2-5.0); Alkaline Phosphatase 105 U/L (45-117); Anion Gap 6 (5-15); BUN 14 mg/dL (7-18); BUN/Creat Ratio 14.2 RATIO (10-20); Calcium,Total 9.1 mg/dL (8.5-10.1); Chloride 104 mmol/L (98-107); Cholesterol 124 mg/dL (200); Creatinine, Serum 0.98 mg/dL (0.70-1.30); EST Glomerular Filtration Rate 84 mL/min (>60); Est Glom Filt Rate - Afr Amer 102 mL/min (>60); Globulin 4.1 g/dL (2.2-4.2); Glucose 94 mg/dL (74-106); High Density Lipoprotein 34 mg/dL; Potassium 3.9 mmol/L (3.5-5.1); Protein, Total 7.9 g/dL (6.4-8.2); Sodium Level 133 mmol/L (136-145); Thyroid Stim Hormone (TSH) 2.45 uIU/mL (0.358-3.74); Triglycerides 218 mg/dL; Very Low Density Lipoprotein 44 mg/dL (5-40)
== END | disposition home or self-care (01) ==
LOC: MFPLAB 14:25
PROVIDERS: PCP Family Medicine; Visit Provider Family Medicine
DX: I10 Essential (primary) hypertension (principal); E66.01 Morbid (severe) obesity due to excess calories; M25.50 Pain in unspecified joint; E78.00 Pure hypercholesterolemia, unspecified
CPT/HCPCS: 36415; 80053; 80061; 84443; 85025

== ENCOUNTER → 2024-06-24 | Outpatient (CLI) | payer OTHER, SELFPAY ==
[2024-06-24 17:43] LABS: ALB/GLOB Ratio 0.9 RATIO (0.9-2.4); AST(SGOT) 28 U/L (15-37); Alanine Aminotransfer ALT/SGPT 37 U/L (16-61); Albumin, Serum 3.7 g/dL (3.2-5.0); Alkaline Phosphatase 110 U/L (45-117); Anion Gap 8 (5-15); BUN 18 mg/dL (7-18); BUN/Creat Ratio 16.7 RATIO (10-20); Calcium,Total 8.8 mg/dL (8.5-10.1); Chloride 104 mmol/L (98-107); Creatinine, Serum 1.08 mg/dL (0.70-1.30); EST Glomerular Filtration Rate 75 mL/min (>60); Est Glom Filt Rate - Afr Amer 91 mL/min (>60); Globulin 4.2 g/dL (2.2-4.2); Glucose 92 mg/dL (74-106); Potassium 3.7 mmol/L (3.5-5.1); Protein, Total 7.9 g/dL (6.4-8.2); Sodium Level 135 mmol/L (136-145)
[2024-06-24 17:52] LABS: Vitamin D,25 Hydroxy 41.3 ng/mL
== END | disposition home or self-care (01) ==
LOC: MFPLAB 15:07
PROVIDERS: PCP Family Medicine; Visit Provider Family Medicine
DX: I10 Essential (primary) hypertension (principal); E55.9 Vitamin D deficiency, unspecified
CPT/HCPCS: 36415; 80053; 82306

== ENCOUNTER → 2024-12-23 | Outpatient (CLI) | payer OTHER, SELFPAY ==
[2024-12-23 18:54] LABS: ALB/GLOB Ratio 0.9 RATIO (0.9-2.4); AST(SGOT) 19 U/L (15-37); Alanine Aminotransfer ALT/SGPT 33 U/L (16-61); Albumin, Serum 3.8 g/dL (3.2-5.0); Alkaline Phosphatase 108 U/L (45-117); Anion Gap 10 (5-15); BUN 14 mg/dL (7-18); BUN/Creat Ratio 14.5 RATIO (10-20); Calcium,Total 9.1 mg/dL (8.5-10.1); Chloride 106 mmol/L (98-107); Creatinine, Serum 0.96 mg/dL (0.70-1.30); EST Glomerular Filtration Rate 85 mL/min (>60); Est Glom Filt Rate - Afr Amer 103 mL/min (>60); Globulin 4.3 g/dL (2.2-4.2); Glucose 98 mg/dL (74-106); Potassium 3.6 mmol/L (3.5-5.1); Protein, Total 8.1 g/dL (6.4-8.2); Sodium Level 137 mmol/L (136-145)
[2024-12-23 19:39] LABS: Microalbumin,Random Urine 9.6 mg/L (NO RANGE EST.); Microalbumin:Creatinine Ratio 7.4 mg/g CRE (<30 mg/g CRE)
== END | disposition home or self-care (01) ==
LOC: MTLAB 14:29
PROVIDERS: PCP Family Medicine; Referring Provider Family Medicine; Visit Provider Family Medicine
DX: I10 Essential (primary) hypertension (principal)
CPT/HCPCS: 36415; 80053; 82043; 82570

== ENCOUNTER → 2025-01-14 | Outpatient (CLI) | payer OTHER, SELFPAY ==
[2025-01-14 12:35] LABS: Erythrocyte Sedimentation Rate 15 mm/hr (0-20)
[2025-01-14 12:40] LABS: Absolute Lymphocyte Count 2.45 X10^3/uL (0.83-4.51); Absolute Neutrophil Count 4.2 X10^3/uL (2.0-7.7); Basophil# 0.08 X10^3/uL; Eosinophil# 1.01 X10^3/uL; Eosinophils% 12.1 % (0-5); Hematocrit 47.6 % (40-54); Hemoglobin 16.5 g/dL (13.0-16.5); Lymphocyte # 2.45 X10^3/ul (0.83-4.51); Lymphocyte % 29.2 % (19-41); Mean Corp Hgb Conc 34.7 g/dL (32-36); Mean Corpuscular Hgb 29.5 pg (27.0-32.0); Mean Corpuscular Volume 85.2 fL (80-94); Mean Platelet Vol. 10.6 fl (6.2-12.0); Monocyte# 0.66 X10^3/uL; Monocyte% 7.9 % (0-10); NRBC Flagged by Analyzer 0 % (0-5); Neutrophil # 4.15 X10^3/uL (2.7-7.7); Neutrophil % 49.4 % (47-70); Platelet Count 317 K/mm3 (150-450); RBC Distribution Width CV 13.2 % (11.6-14.6); RBC Distribution Width SD 40.7 fl (35.1-43.9); Red Blood Count 5.59 M/mm3 (4.6-6.2); White Blood Count 8.4 K/mm3 (4.4-11.0)
[2025-01-14 13:02] LABS: CRP < 3.00 mg/L (0.0-3.0)
[2025-01-15 12:08] LABS: ANTINUCLEAR ANTIBODIES DIRECT Negative (Negative)
== END | disposition home or self-care (01) ==
LOC: MFPLAB 10:16
PROVIDERS: PCP Family Medicine; Referring Provider Family Medicine; Visit Provider Family Medicine
DX: R23.1 Pallor (principal)
CPT/HCPCS: 36415; 84443; 85025; 85652; 86038; 86140

== ENCOUNTER → 2025-01-22 | Outpatient (CLI) | payer OTHER, SELFPAY ==
[2025-01-22 17:40] LABS: Absolute Lymphocyte Count 2.94 X10^3/uL (0.83-4.51); Absolute Neutrophil Count 4.6 X10^3/uL (2.0-7.7); Basophil# 0.09 X10^3/uL; Eosinophil# 0.92 X10^3/uL; Hematocrit 46.7 % (40-54); Hemoglobin 16.2 g/dL (13.0-16.5); Lymphocyte # 2.94 X10^3/ul (0.83-4.51); Lymphocyte % 31.9 % (19-41); Mean Corp Hgb Conc 34.7 g/dL (32-36); Mean Corpuscular Hgb 29.5 pg (27.0-32.0); Mean Corpuscular Volume 85.1 fL (80-94); Mean Platelet Vol. 10.2 fl (6.2-12.0); Monocyte# 0.65 X10^3/uL; Monocyte% 7.1 % (0-10); NRBC Flagged by Analyzer 0 % (0-5); Neutrophil # 4.59 X10^3/uL (2.7-7.7); Neutrophil % 49.8 % (47-70); Platelet Count 326 K/mm3 (150-450); RBC Distribution Width CV 13.1 % (11.6-14.6); RBC Distribution Width SD 40.5 fl (35.1-43.9); Red Blood Count 5.49 M/mm3 (4.6-6.2); White Blood Count 9.2 K/mm3 (4.4-11.0)
[2025-01-22 17:59] LABS: Erythrocyte Sedimentation Rate 13 mm/hr (0-20)
[2025-01-22 20:48] LABS: ALB/GLOB Ratio 1.2 RATIO (0.9-2.4); AST(SGOT) 24 U/L (<=37); Alanine Aminotransfer ALT/SGPT 27 U/L (<=46); Albumin, Serum 4.3 g/dL (3.5-5.0); Alkaline Phosphatase 103 U/L (40-129); Anion Gap 14 (5-15); BUN 16 mg/dL (4-19); BUN/Creat Ratio 18.1 RATIO (10-20); Calcium,Total 9.3 mg/dL (7.6-11.0); Carbon Dioxide 20.6 mmol/L (21.0-32.0); Chloride 103 mmol/L (98-108); Creatinine, Serum 0.86 mg/dL (0.70-1.20); EST Glomerular Filtration Rate 102 (>60); Globulin 3.5 g/dL (2.2-4.2); Glucose 97 mg/dL (70-99); Potassium 3.8 mmol/L (3.3-5.1); Protein, Total 7.9 g/dL (5.9-8.4); Sodium Level 137 mmol/L (133-145)
[2025-01-22 20:53] LABS: CRP < 3.00 mg/L (0.0-3.0); Rheumatoid Factor < 10.0 IU/mL (<15)
[2025-01-26 13:07] LABS: Anti-Centromere B Ab <0.2 AI (0.0-0.9); Anti-Chromatin <0.2 AI (0.0-0.9); Anti-Jo <0.2 AI (0.0-0.9); Anti-Scleroderma-70 AB <0.2 AI (0.0-0.9); Anti-dsDNA Ab <1 IU/mL (0-9); Anti-ribosomal P Antibodies <0.2 AI (0.0-0.9); RNP Ab <0.2 AI (0.0-0.9); SJOGREN'S Anti-SS-A test < 0.2 AI (0.0-0.9); SJOGREN'S Anti-SS-B test < 0.2 AI (0.0-0.9); Smith Ab <0.2 AI (0.0-0.9); Smith/RNP Ab <0.2 AI (0.0-0.9)
[2025-01-26 17:07] LABS: Complement C3 149 mg/dL (82-167); Complement CH50 > 60 U/mL (>41); Cytoplasmic Ab (C-ANCA) <1:20 titer (Neg:<1:20); PROEL- A/G Ratio 0.9 (0.7-1.7); PROEL- Albumin 3.7 g/dL (2.9-4.4); PROEL- Alpha-1 Globulin 0.2 g/dL (0.0-0.4); PROEL- Alpha-2 Globulin 0.8 g/dL (0.4-1.0); PROEL- Beta Globulin 1.2 g/dL (0.7-1.3); PROEL- Gamma Globulin 1.6 g/dL (0.4-1.8); PROEL- Globulin, Total 3.9 g/dL (2.2-3.9); PROEL- TOTAL PROTEIN 7.6 g/dL (6.0-8.5); PROEL-M-Spike Not Observed g/dL (Not Observed); Perinuclear Ab (P-ANCA) <1:20 titer (Neg:<1:20)
== END | disposition home or self-care (01) ==
LOC: MTLAB 15:57
PROVIDERS: PCP Family Medicine; Referring Provider Family Medicine; Visit Provider Family Medicine
DX: R23.1 Pallor (principal)
CPT/HCPCS: 36415; 80053; 82595; 84165; 84443; 85025; 85652; 86037; 86140; 86160; 86162; 86225; 86235; 86431

== ENCOUNTER → 2025-06-30 | Outpatient (CLI) | payer OTHER, SELFPAY ==
[2025-06-30 19:05] LABS: AST(SGOT) 24 U/L (<=37); Alanine Aminotransfer ALT/SGPT 24 U/L (<=46); Albumin, Serum 4.0 g/dL (3.5-5.0); Alkaline Phosphatase 103 U/L (40-129); Anion Gap 14 (5-15); BUN 16 mg/dL (4-19); BUN/Creat Ratio 18.1 RATIO (10-20); Calcium,Total 9.2 mg/dL (7.6-11.0); Carbon Dioxide 19.2 mmol/L (21.0-32.0); Chloride 102 mmol/L (98-108); Cholesterol 111 mg/dL (<=200); Globulin 3.4 g/dL (2.2-4.2); Glucose 87 mg/dL (70-99); Low Density Lipoprotein Calc. 47 mg/dL; PSA,Total - Annual Screen 1.29 ng/mL (0.02-4.00); Potassium 3.9 mmol/L (3.3-5.1); Triglycerides 159 mg/dL; Very Low Density Lipoprotein 32 mg/dL (5-40); cholesterol:hdl ratio screen 3.47
--- OUTSIDE RECORDS SUMMARY | 2025-06-30 22:26 | XMS RPT_ITS | CCD ---
Author Organization [facility] Care Team Providers Care Sales Management Intern Name Role Phone Dereje Zavala Primary Care Provider Sheldon Khan Referring Unavailable Sheldon Khan Attending Unavailable Sheldon Khan Primary Care Unavailable Sheldon Khan Attending Unavailable Sheldon Khan Primary Care Unavailable Sheldon Khan Referring Unavailable Sheldon Khan Attending Unavailable Sheldon Khan Primary Care Unavailable Sheldon Khan Referring Unavailable Sheldon Khan Attending Unavailable Sheldon Khan Primary Care Unavailable Bill RUEDA, Dr. Chung Primary Care Provider Bill RUEDA, Dr. Chung Attending Provider Bill RUEDA, Dr. Chung Referring Provider Allergies Allergy Classification Reported Allergen(s) Allergy Type Date of Onset Reaction(s) Facility (1 source) Ragweed pollen Drug allergy (disorder) 09-13-2022 [facility] Repository Medications Current Medications Medication Drug Class(es) Dates Sig (Normalized) Sig (Original) cetirizine hydrochloride 10 mg oral capsule (5 sources) Histamine-1 Receptor Antagonist Start: 09-26-2019 take 1 capsule by mouth once daily Cetirizine 10 MG capsule Active 10 mg PO DAILY September 26, 2019 1:00am Comment on above: Take by mouth. Yolqtpjxovlv-Myiy-Tw lic Acid (1 source) Start: 09-26-2019 Multivitamin-Iron -Folic Acid Active 1 EACH PO DAILY September 26, 2019 1:00am Fdhibkprezfg-Tzgm-Tr lic Acid 1 EACH tablet (2 sources) Start: 09-26-2019 Multivitamin-Iron -Folic Acid 1 EACH tablet Active 1 NMA PO DAILY September 26, 2019 1:00am pravastatin sodium 40 mg oral tablet (3 sources) HMG-CoA Reductase Inhibitor Start: 09-26-2019 take 1 tablet by mouth at bedtime Pravastatin 40 MG tablet Active 40 mg PO AT BEDTIME September 26, 2019 1:00am Completed/Discontinued Medications Medication Drug Class(es) Dates Sig (Normalized) Sig (Original) amLODIPine 10 mg / benazepril hydrochloride 40 mg oral capsule (5 sources) Dihydropyridine Calcium Channel Gino, Angiotensin Converting Enzyme Inhibitor Start: 06-26-2023 amLODIPine-Benaz epril 10-40 mg per capsule Start: 09-26-2019 Amlodipine-Adolfo azepril 1 EACH capsule Active 1 NMA PO DAILY September 26, 2019 1:00am Start: 09-26-2019 Amlodipine-Adolfo azepril Active 1 EACH PO DAILY September 26, 2019 1:00am atorvastatin 40 mg oral tablet (2 sources) HMG-CoA Reductase Inhibitor Start: 08-26-2023 atorvastatin (LIPITOR) 40 mg tablet benzonatate 100 mg oral capsule (2 sources) Non-narcotic Antitussive Start: 09-04-2023 take 2 capsules by mouth every eight hours as needed benzonatate (TESSALON PERLE) 100 mg capsule Take 2 capsules by mouth three times a day as needed. 30 capsule 0 09/04/2023 Active Comment on above: Take 2 capsules by m outh three times a day as needed. Problems Problem Classification Problem Date Documented Da te Episodic/Chronic Essential hypertension (1 source) Essential (primary) hypertension; Translations: [Essential (primary) hypertension] Onset: 01-06-2025 Chronic Other screening for suspected conditions (not mental disorders or infectious disease) (3 sources) Patient encounter status; Translations: [Encounter for screening for malignant neoplasm of intestinal tract, unspecified] 09-30-2019 Episodic Other upper respiratory infections (1 source) Upper respiratory infection; Translations: [Acute upper respiratory infection, unspecified] 09-04-2023 Episodic Residual codes; unclassified (1 source) Procedure not done; Translations: [Procedure and treatment not carried out, unspecified reason] Episodic Residual codes; unclassified (1 source) Pallor; Translations: [Pallor] Onset: 01-31-2025 Episodic Results Test Name Value Interpretation Reference Range Facility ZEYAD w/Comprehensiveon 2024 ANTI-DNA (DS)AB <1 Normal 0-9 [facility] Comment on above: Result Comment: Nega tive <5 Equivocal 5 - 9 Positive >9 Performed By: #### L 3100.5800, L501.9520, L3100.5430, L501.6710, L3100.3450, L500.4050, L100.0100, L101.9900, L3100.5600, L3300.1200, L505.7010, L3100.5700 #### [facility] [address] [place], [address] ANTISCLERODERM <0.2 Normal 0.0-0.9 [facility] Comment on above: Performed By: #### L 3100.5800, L501.9520, L3100.5430, L501.6710, L3100.3450, L500.4050, L100.0100, L101.9900, L3100.5600, L3300.1200, L505.7010, L3100.5700 #### [facility] [address] [place], [address] ANCAon 01-26-2025 Atypical pANCA <1:20 Normal Neg:<1:20 [facility] Comment on above: Order Comment: Test( s) 385925-Bhaqhbqvvdfl, Ql, Serum, Rflxwas developed and its performance characteristicsdetermined by [employer]. It has not been cleared or approvedby the Food and Drug Administration. Result Comment: The atypical pANCA pattern has been observed in a significant percentage of patients with ulcerative colitis, primary sclerosing cholangitis and autoimmune hepatitis. Performed By: #### L 3100.5475, L501.6710, L101.9900, L501.9520, L100.0100 #### [facility] [address] [place], [address] Cytoplasmic Ab <1:20 Normal Neg:<1:20 [facility] Comment on above: Order Comment: Test( s) 250305-Aokwyqfpmuxm, Ql, Serum, Rflxwas developed and its performance characteristicsdetermined by [employer]. It has not been cleared or approvedby the Food and Drug Administration. Performed By: #### L 3100.5475, L501.6710, L101.9900, L501.9520, L100.0100 #### [facility] [address] [place], [address] Perinuclear Ab. <1:20 Normal Neg:<1:20 [facility] Comment on above: Order Comment: Test( s) 871701-Wdrccxvuonww, Ql, Serum, Rflxwas developed and its performance characteristicsdetermined by [employer]. It has not been cleared or approvedby the Food and Drug Administration. Result Comment: The presence of positive fluorescence exhibiting P-ANCA or C-ANCA patterns alone is not specific for the diagnosis of Sol's Granulomatosis (WG) or microscopic polyangiitis. Decisions about treatment should not be based solely on ANCA IFA results. The International ANCA Group Consensus recommends follow up testing of positive sera with both DC- 3 and MPO-ANCA enzyme immunoassays. As many as 5% serum samples are positive only by EIA. Ref. AM J Clin Pathol 1999;111:507-513. Performed By: #### L 3100.5475, L501.6710, L101.9900, L501.9520, L100.0100 #### [facility] [address] [place], [address] Complement C3on 01-26-2025 COMP C3 149 mg/dL Normal 82-167 [facility] Comment on above: Order Comment: Test( s) [id number]-Bynzzisawrll, Ql, Serum, Rflxwas developed and its performance characteristicsdetermined by [employer]. It has not been cleared or approvedby the Food and Drug Administration. Performed By: #### L 3100.5475, L501.6710, L101.9900, L501.9520, L100.0100 #### [facility] [address] [place], [address] Complement C4on 01-26-2025 COMPLEMENT, C4 26 mg/dL Normal 12-38 [facility] Comment on above: Order Comment: Test( s) 399876-Eqlzotkojuuy, Ql, Serum, Rflxwas developed and its performance characteristicsdetermined by [facility]. It has not been cleared or approvedby the Food and Drug Administration. Performed By: #### L 3100.5475, L501.6710, L101.9900, L501.9520, L100.0100 #### [facility] [address] [place], [address] Complement CH50on 01-26-2025 COMPLEMENT,CH50 > 60 Normal >41 [facility] Comment on above: Order Comment: Test( s) 382913-Nnahkoumxxyp, Ql, Serum, Rflxwas developed and its performance characteristicsdetermined by [facility]. It has not been cleared or approvedby the Food and Drug Administration. Result Comment: Age Male Female 1 - 30 days Not Estab. Not Estab. 31 days - 6 months >32 >20 7 months - 17 years >39 >39 >17 years >41 >41 NOTE: The adult (>17 years) reference interval range is used to flag abnormals on this report. If the patient is 17 years old or younger, use the table above to determine out of range values. Performed By: #### L 3100.5475, L501.6710, L101.9900, L501.9520, L100.0100 #### [facility] [address] [place], [address] Protein Electroph, Son 01-26 Albumin [Mass/Vol] 3.7 g/dL Normal 2.9-4.4 [facility] Comment on above: Order Comment: Test( s) 628511-Papgyvkrjgjg, Ql, Serum, Rflxwas developed and its performance characteristicsdetermined by [facility]. It has not been cleared or approvedby the Food and Drug Administration. Performed By: #### L 3100.5475, L501.6710, L101.9900, L501.9520, L100.0100 #### [facility] [address] [place], [address] Albumin/Globulin [Mass ratio] 0.9 {ratio} Normal 0.7-1.7 [facility] Comment on above: Order Comment: Test( s) 628899-Kdoxxxtehsdc, Ql, Serum, Rflxwas developed and its performance characteristicsdetermined by [facility]. It has not been cleared or approvedby the Food and Drug Administration. Performed By: #### L 3100.5475, L501.6710, L101.9900, L501.9520, L100.0100 #### [facility] [address] [place], [address] ALPHA-1 GLOBUL 0.2 g/dL Normal 0.0-0.4 [facility] Comment on above: Order Comment: Test( s) 917375-Zhjmoaundmqi, Ql, Serum, Rflxwas developed and its performance characteristicsdetermined by [facility]. It has not been cleared or approvedby the Food and Drug Administration. Performed By: #### L 3100.5475, L501.6710, L101.9900, L501.9520, L100.0100 #### [facility] [address] [place], [address] ALPHA-2 GLOBUL 0.8 g/dL Normal 0.4-1.0 [facility] Comment on above: Order Comment: Test( s) 684547-Iulksudwooqx, Ql, Serum, Rflxwas developed and its performance characteristicsdetermined by [facility]. It has not been cleared or approvedby the Food and Drug Administration. Performed By: #### L 3100.5475, L501.6710, L101.9900, L501.9520, L100.0100 #### [facility] [address] [place], [address] BETA GLOBULIN 1.2 g/dL Normal 0.7-1.3 [facility] Comment on above: Order Comment: Test( s) 803424-Xvpihrsnylcj, Ql, Serum, Rflxwas developed and its performance characteristicsdetermined by [facility]. It has not been cleared or approvedby the Food and Drug Administration. Performed By: #### L 3100.5475, L501.6710, L101.9900, L501.9520, L100.0100 #### [facility] [address] [place], [place], [phone] GAMMA GLOBULIN 1.6 g/dL Normal 0.4-1.8 [facility] Comment on above: Order Comment: Test( s) 300288-Ombxieccziqt, Ql, Serum, Rflxwas developed and its performance characteristicsdetermined by [facility]. It has not been cleared or approvedby the Food and Drug Administration. Performed By: #### L 3100.5475, L501.6710, L101.9900, L501.9520, L100.0100 #### [facility] [address] [place], [address] ([phone]) Globulin (S) [Mass/Vol] 3.9 g/dL Normal 2.2-3.9 [facility] Comment on above: Order Comment: Test( s) 040200-Ydiazppnlfmi, Ql, Serum, Rflxwas developed and its performance characteristicsdetermined by [facility]. It has not been cleared or approvedby the Food and Drug Administration. Performed By: #### L 3100.5475, L501.6710, L101.9900, L501.9520, L100.0100 #### [facility] [address] [place], [address] [phone] INTERPRETATION Comment Normal . [facility] Comment on above: Order Comment: Test( s) 469750-Gzjqqbthkdoz, Ql, Serum, Rflxwas developed and its performance characteristicsdetermined by [facility]. It has not been cleared or approvedby the Food and Drug Administration. Result Comment: Prot ein electrophoresis scan will follow via computer, mail, or electrical apprentice delivery. Performed By: #### L 3100.5475, L501.6710, L101.9900, L501.9520, L100.0100 #### [facility] [address] [place], [place], [phone] M-SPIKE Not Observed Normal Not Observed [facility] Comment on above: Order Comment: Test( s) 176764-Lvfknnfkrust, Ql, Serum, Rflxwas developed and its performance characteristicsdetermined by [facility]. It has not been cleared or approvedby the Food and Drug Administration. Performed By: #### L 3100.5475, L501.6710, L101.9900, L501.9520, L100.0100 #### [facility] [address] [place], [address] NOTE: Comment Normal . [facility] Comment on above: Order Comment: Test( s) 293419-Whedmnstmkng, Ql, Serum, Rflxwas developed and its performance characteristicsdetermined by [facility]. It has not been cleared or approvedby the Food and Drug Administration. Result Comment: The SPE pattern appears unremarkable. Evidence of monoclonal protein is not apparent. Performed By: #### L 3100.5475, L501.6710, L101.9900, L501.9520, L100.0100 #### [facility] [address] [place], [address] Protein [Mass/Vol] 7.6 g/dL Normal 6.0-8.5 [facility] Comment on above: Order Comment: Test( s) 165302-Zwmlldaadxrt, Ql, Serum, Rflxwas developed and its performance characteristicsdetermined by [facility]. It has not been cleared or approvedby the Food and Drug Administration. Performed By: #### L 3100.5475, L501.6710, L101.9900, L501.9520, L100.0100 #### [facility] [address] [place], [address] Absolute neutrophil countOrd ered By: Sheldon Khan on 01-22-2025 Neutrophils (Bld) [#/Vol] 4.6 10*3/uL 2.0-7.7 [facility] Addendum DocumentOrdered By: Sheldon Khan on 01-22-2025 Protein Electrophoresis Note Comment . [facility] Comment on above: The SPE pattern appe ars unremarkable. Evidence ofmonoclonal protein is not apparent. Albumin Elph [Mass/Vol]Order ed By: Sheldon Khan on 01-22-2025 Albumin [Mass/Vol] 3.7 g/dL 2.9-4.4 [facility] Albumin/Globulin Elph [Mass ratio]Ordered By: Sheldno Khan on 01-22-2025 Albumin/Globulin (PEP) 0.9 0.7-1.7 [facility] Dztmv-5-lugbiben measurement by protein electrophoresisOrdered By: Sheldon Khan on 01-22-2025 Kjenp-0-Vsvyhydsb 0.2 g/dL 0.0-0.4 [facility] Zpmrl-4-rrloakzm measurement by protein electrophoresisOrdered By: Sheldon Khan on 01-22-2025 Qnevr-8-Pebuiapbh 0.8 g/dL 0.4-1.0 [facility] Anion gap in Serum or Plasma Ordered By: Sheldon Khan on 01-22-2025 Anion gap [Moles/Vol] 14 mmol/L 5-15 [facility] Atypical perinuclear antineu trophil cytoplasmic antibodies measurementOrdered By: Sheldon Khan on 01-22-2025 Atypical p-ANCA <1:20 titer Neg:<1:20 [facility] Comment on above: The atypical pANCA p attern has been observed in asignificant percentage of patients with ulcerative colitis,primary sclerosing cholangitis and autoimmune hepatitis. BUN/creatinine ratioOrdered By: Sheldon Khan on 01-22-2025 Urea nitrogen/Creatinine [Mass ratio] 18.1 mg/mg 10-20 [facility] Basophil percentageOrdered B y: Sheldon Khan on 01-22-2025 Basophils/100 WBC (Bld) 1.0 % 0-1 [facility] Beta globulin Elph [Mass/Vol ]Ordered By: Sheldon Khan on 01-22-2025 Beta Globulins 1.2 g/dL 0.7-1.3 [facility] Bilirubin, totalOrdered By: Sheldon Khan on 01-22-2025 Bilirubin [Mass/Vol] 0.60 mg/dL 0.00-1.30 [facility] CBC W/Diff, Automatedon 01-10 Absolute Lymph 2.94 X10 3/uL Normal 0.83-4.51 [facility] Comment on above: Performed By: #### L 3100.5475, L501.6710, L101.9900, L501.9520, L100.0100 #### [facility] [address] [place], [address] Absolute Neut 4.6 X10 3/uL Normal 2.0-7.7 [facility] Comment on above: Performed By: #### L 3100.5475, L501.6710, L101.9900, L501.9520, L100.0100 #### [facility] [address] [place], [address] Basophils/100 WBC (Bld) 1.0 % Normal 0-1 [facility] Comment on above: Performed By: #### L 3100.5475, L501.6710, L101.9900, L501.9520, L100.0100 #### [facility] [address] [place], [address] Eosinophils/100 WBC (Bld) 10.0 % High 0-5 [facility] Comment on above: Performed By: #### L 3100.5475, L501.6710, L101.9900, L501.9520, L100.0100 #### [facility] [address] [place], [address] Erythrocyte distribution width (RBC) [Ratio] 13.1 % Normal 11.6-14.6 [facility] Comment on above: Performed By: #### L 3100.5475, L501.6710, L101.9900, L501.9520, L100.0100 #### [facility] [address] [place], [address] Hematocrit (Bld) [Volume fraction] 46.7 % Normal 40-54 [facility] Comment on above: Performed By: #### L 3100.5475, L501.6710, L101.9900, L501.9520, L100.0100 #### [facility] [address] [place], [address] Hemoglobin (Bld) [Mass/Vol] 16.2 g/dL Normal 13.0-16.5 [facility] Comment on above: Performed By: #### L 3100.5475, L501.6710, L101.9900, L501.9520, L100.0100 #### [facility] [address] [place], [address] IG% 0.200 Normal 0.0-0.9 [facility] Comment on above: Result Comment: IG% - Immature Granulocytes (promyelocytes, myelocytes and metamyelocytes) > 1% indicates that a LEFT SHIFT is Present. Performed By: #### L 3100.5475, L501.6710, L101.9900, L501.9520, L100.0100 #### [facility] [address] [place], [address] Lymphocytes/100 WBC (Bld) 31.9 % Normal 19-41 [facility] Comment on above: Performed By: #### L 3100.5475, L501.6710, L101.9900, L501.9520, L100.0100 #### [facility] [address] [place], [address] MCH (RBC) [Entitic mass] 29.5 pg Normal 27.0-32.0 [facility] Comment on above: Performed By: #### L 3100.5475, L501.6710, L101.9900, L501.9520, L100.0100 #### [facility] [address] [place], [address] MCHC (RBC) [Mass/Vol] 34.7 g/dL Normal 32-36 [facility] Comment on above: Performed By: #### L 3100.5475, L501.6710, L101.9900, L501.9520, L100.0100 #### [facility] [address] [place], [address] MCV (RBC) [Entitic vol] 85.1 fL Normal 80-94 [facility] Comment on above: Performed By: #### L 3100.5475, L501.6710, L101.9900, L501.9520, L100.0100 #### [facility] [address] [place], [address] Monocytes/100 WBC (Bld) 7.1 % Normal 0-10 [facility] Comment on above: Performed By: #### L 3100.5475, L501.6710, L101.9900, L501.9520, L100.0100 #### [facility] [address] [place], [address] Neutrophils/100 WBC (Bld) 49.8 % Normal 47-70 [facility] Comment on above: Performed By: #### L 3100.5475, L501.6710, L101.9900, L501.9520, L100.0100 #### [facility] [address] [place], [address] Nucleated RBC (Bld) [#/Vol] 0 10*3/uL Normal 0-5 [facility] Comment on above: Performed By: #### L 3100.5475, L501.6710, L101.9900, L501.9520, L100.0100 #### [facility] [address] [place], [address] Platelet mean volume (Bld) [Entitic vol] 10.2 fL Normal 6.2-12.0 [facility] Comment on above: Performed By: #### L 3100.5475, L501.6710, L101.9900, L501.9520, L100.0100 #### [facility] [address] [place], [address] Platelets (Bld) [#/Vol] 326 10*3/uL Normal 150-450 [facility] Comment on above: Performed By: #### L 3100.5475, L501.6710, L101.9900, L501.9520, L100.0100 #### [facility] [address] [place], [address] RBC (Bld) [#/Vol] 5.49 10*6/uL Normal 4.6-6.2 [facility] Comment on above: Performed By: #### L 3100.5475, L501.6710, L101.9900, L501.9520, L100.0100 #### [facility] [address] [place], [address] RDW SD 40.5 fl Normal 35.1-43.9 [facility] Comment on above: Performed By: #### L 3100.5475, L501.6710, L101.9900, L501.9520, L100.0100 #### [facility] [address] [place], [address] WBC (Bld) [#/Vol] 9.2 10*3/uL Normal 4.4-11.0 [facility] Comment on above: Performed By: #### L 3100.5475, L501.6710, L101.9900, L501.9520, L100.0100 #### [facility] [address] [place], [address] CRPon 01-22-2025 C-REACTIVE PROT < 3.00 Normal 0.0-3.0 [facility] Comment on above: Performed By: #### L 3100.5475, L501.6710, L101.9900, L501.9520, L100.0100 #### [facility] [address] [place], [address] CRP [Mass/Vol]Ordered By: Akash Khan on 01-22-2025 C-Reactive Protein Extended Range < 3.00 mg/L 0.0-3.0 [facility] Carbon dioxide, total [Moles /volume] in Central venous bloodOrdered By: Sheldon Khan on 01-22-2025 CO2 [Moles/Vol] 20.6 mmol/L Low 21.0-32.0 [facility] Centromere B antibody assayO rdered By: Sheldon Khan on 01-22-2025 Centromere B Antib[address] [facility] Comment on above: Test not performed Centromere B Antibody <0.2 AI 0.0-0.9 [facility] Comment on above: Previous reported re sult: TNP AIEdited by: KALEB on 01/26/25:1307 AMENDED REPORT 01/26/25 1307 ANTI-CENT B previously reported as: Test not performed Chloride assayOrdered By: Akash Khan on 01-22-2025 Chloride [Moles/Vol] 103 mmol/L 98-108 [facility] Chromatin antibody assayOrde red By: Sheldon Khan on 01-22-2025 Antichromatin Antibodies TNP [facility] Comment on above: Test not performed Antichromatin Antibodies <0.2 AI 0.0-0.9 [facility] Comment on above: Previous reported re sult: TNP AIEdited by: KALEB on 01/26/25:1307 AMENDED REPORT 01/26/25 1307 ANTICHROMATIN previously reported as: Test not performed Complement C3 assayOrdered B y: Sheldon Khan on 01-22-2025 Complement C3 149 mg/dL 82-167 [facility] Complement C4 [Mass/Vol]Orde red By: Sheldon Khan on 01-22-2025 Complement C4 26 mg/dL 12-38 [facility] Comprehensive Metabolic Prof ilon 01-22-2025 Albumin [Mass/Vol] 4.3 g/dL Normal 3.5-5.0 [facility] Comment on above: Performed By: #### L 3100.5475, L501.6710, L101.9900, L501.9520, L100.0100 #### [facility] [address] [place], [address] Albumin/Globulin [Mass ratio] 1.2 {ratio} Normal 0.9-2.4 [facility] Comment on above: Performed By: #### L 3100.5475, L501.6710, L101.9900, L501.9520, L100.0100 #### [facility] [address] [place], [address] ALK PHOS 103 U/L Normal 40-129 [facility] Comment on above: Performed By: #### L 3100.5475, L501.6710, L101.9900, L501.9520, L100.0100 #### [facility] [address] [place], [address] ALT [Catalytic activity/Vol] 27 U/L Normal <=46 [facility] Comment on above: Performed By: #### L 3100.5475, L501.6710, L101.9900, L501.9520, L100.0100 #### [facility] [address] [place], [address] AST [Catalytic activity/Vol] 24 U/L Normal <=37 [facility] Comment on above: Performed By: #### L 3100.5475, L501.6710, L101.9900, L501.9520, L100.0100 #### [facility] [address] [place], [address] Bilirubin [Mass/Vol] 0.60 mg/dL Normal 0.00-1.30 [facility] Comment on above: Performed By: #### L 3100.5475, L501.6710, L101.9900, L501.9520, L100.0100 #### [facility] [address] [place], [address] BUN/CRE 18.1 RATIO Normal 10-20 [facility] Comment on above: Performed By: #### L 3100.5475, L501.6710, L101.9900, L501.9520, L100.0100 #### [facility] [address] [place], [address] Calcium [Mass/Vol] 9.3 mg/dL Normal 7.6-11.0 [facility] Comment on above: Performed By: #### L 3100.5475, L501.6710, L101.9900, L501.9520, L100.0100 #### [facility] [address] [place], [address] Chloride [Moles/Vol] 103 mmol/L Normal 98-108 [facility] Comment on above: Performed By: #### L 3100.5475, L501.6710, L101.9900, L501.9520, L100.0100 #### [facility] [address] [place], [address] CO2 [Moles/Vol] 20.6 mmol/L Low 21.0-32.0 [facility] Comment on above: Performed By: #### L 3100.5475, L501.6710, L101.9900, L501.9520, L100.0100 #### [facility] [address] [place], [address] Creatinine [Mass/Vol] 0.86 mg/dL Normal 0.70-1.20 [facility] Comment on above: Performed By: #### L 3100.5475, L501.6710, L101.9900, L501.9520, L100.0100 #### [facility] [address] [place], [address] GAP 14 Normal 5-15 [facility] Comment on above: Performed By: #### L 3100.5475, L501.6710, L101.9900, L501.9520, L100.0100 #### [facility] [address] [place], [address] GFR/1.73 sq M.predicted among non-blacks MDRD (S/P/Bld) [Vol rate/Area] 102 mL/min/{1.73_m2} Normal >60 [facility] Comment on above: Result Comment: mL/m in/1.73m2 CKD-EPI Creatinine Equation (2020) Performed By: #### L 3100.5475, L501.6710, L101.9900, L501.9520, L100.0100 #### [facility] [address] [place], [address] Globulin (S) [Mass/Vol] 3.5 g/dL Normal 2.2-4.2 [facility] Comment on above: Performed By: #### L 3100.5475, L501.6710, L101.9900, L501.9520, L100.0100 #### [facility] [address] [place], [address] Glucose [Mass/Vol] 97 mg/dL Normal 70-99 [facility] Comment on above: Performed By: #### L 3100.5475, L501.6710, L101.9900, L501.9520, L100.0100 #### [facility] [address] [place], [address] Potassium [Moles/Vol] 3.8 mmol/L Normal 3.3-5.1 [facility] Comment on above: Performed By: #### L 3100.5475, L501.6710, L101.9900, L501.9520, L100.0100 #### [facility] [address] [place], [address] Sodium [Moles/Vol] 137 mmol/L Normal 133-145 [facility] Comment on above: Performed By: #### L 3100.5475, L501.6710, L101.9900, L501.9520, L100.0100 #### [facility] [address] [place], [address] T PROT 7.9 g/dL Normal 5.9-8.4 [facility] Comment on above: Performed By: #### L 3100.5475, L501.6710, L101.9900, L501.9520, L100.0100 #### [facility] [address] [place], [address] Urea nitrogen [Mass/Vol] 16 mg/dL Normal 4-19 [facility] Comment on above: Performed By: #### L 3100.5475, L501.6710, L101.9900, L501.9520, L100.0100 #### [facility] [address] [place], [address] DNA double strand Ab Qn (S)O rdered By: Sheldon Khan on 01-22-2025 Anti-Double Strand DNA Antibody <1 IU/mL 0-9 [facility] Comment on above: Negative <5 Equivoca l 5 - 9 Positive >9 Eosinophil percentageOrdered By: Sheldon Khan on 01-22-2025 Eosinophils/100 WBC (Bld) 10.0 % High 0-5 [facility] Erythrocyte Sed Rateon 01-22 SED RATE 13 mm/hr Normal 0-20 [facility] Comment on above: Performed By: #### L 3100.5475, L501.6710, L101.9900, L501.9520, L100.0100 #### [facility] [address] [place], [address] Erythrocyte distribution wid th ratioOrdered By: Sheldon Khan on 01-22-2025 Erythrocyte distribution width (RBC) [Ratio] 13.1 % 11.6-14.6 [facility] Erythrocyte distribution wid th standard deviationOrdered By: Sheldon Khan on 01-22-2025 Erythrocyte distribution width (RBC) [Entitic vol] 40.5 fL 35.1-43.9 [facility] Erythrocyte sedimentation ra teOrdered By: Sheldon Khan on 01-22-2025 ESR (Bld) [Velocity] 13 mm/h 0-20 [facility] GFR/1.73 sq M.predicted marty g non-blacks MDRD (S/P/Bld) [Vol rate/Area]Ordered By: Sheldon Khan on 01-22-2025 Estimated GFR (MDRD) Non-Af Amer 102 >60 [facility] Comment on above: mL/min/1.73m2 CKD-EP I Creatinine Equation (2020) Gamma globulin measurement b y protein electrophoresisOrdered By: Sheldon Khan on 01-22-2025 Gamma Globulins 1.6 g/dL 0.4-1.8 [facility] Globulin (S) [Mass/Vol]Order ed By: Sheldon Khan on 01-22-2025 Globulin (PEP) 3.9 g/dL 2.2-3.9 [facility] Hematocrit Auto (Bld) [Volum e fraction]Ordered By: Sheldon Khan on 01-22-2025 Hematocrit (Bld) [Volume fraction] 46.7 % 40-54 [facility] Hemoglobin measurementOrdere d By: Sheldon Khan on 01-22-2025 Hemoglobin (Bld) [Mass/Vol] 16.2 g/dL 13.0-16.5 [facility] Immature granulocytes/100 WB C Auto (Bld)Ordered By: Sheldon Khan on 01-22-2025 Immature granulocytes/100 WBC (Bld) 0.200 % 0.0-0.9 [facility] Comment on above: IG% - Immature Granu locytes (promyelocytes, myelocytes and metamyelocytes) > 1% indicates that a LEFT SHIFT is Present. Andreia-1 antibody assayOrdered B y: Sheldon Khan on 01-22-2025 ANDREIA-1 Antibody TNP [facility] Comment on above: Test not performed ANDREIA-1 Antibody <0.2 AI 0.0-0.9 [place] [facility] Comment on above: Previous reported re sult: TNP AIEdited by: KALEB on 01/26/25:1307 AMENDED REPORT 01/26/25 1307 ANTI-ANDREIA previously reported as: Test not performed Laboratory - Chemistry and C hemistry - challengeOrdered By: Sheldon Khan on 01-22-2025 AST [Catalytic activity/Vol] 24 U/L <38 [facility] Lymphocytes Auto (Unsp spec) [#/Vol]Ordered By: Sheldon Khan on 01-22-2025 Lymphocytes (Bld) [#/Vol] 2.94 10*3/uL 0.83-4.51 [facility] Lymphocytes/100 WBC Auto (Un sp spec)Ordered By: Sheldon Khan on 01-22-2025 Lymphocytes/100 WBC (Bld) 31.9 % 19-41 [facility] MCV (mean corpuscular volume ) determinationOrdered By: Sheldon Khan on 01-22-2025 MCV (RBC) [Entitic vol] 85.1 fL 80-94 [facility] Mean corpuscular hemoglobin (MCH) determinationOrdered By: Sheldon Khan on 01-22-2025 MCH (RBC) [Entitic mass] 29.5 pg 27.0-32.0 [facility] Mean corpuscular hemoglobin concentration (MCHC) determinationOrdered By: Sheldon Khan on 01-22-2025 MCHC (RBC) [Mass/Vol] 34.7 g/dL 32-36 [facility] Mean platelet volume determi nationOrdered By: Sheldon Khan on 01-22-2025 Platelet mean volume (Bld) [Entitic vol] 10.2 fL 6.2-12.0 [facility] Monocyte percentageOrdered B y: Sheldon Khan on 01-22-2025 Monocytes/100 WBC (Bld) 7.1 % 0-10 [facility] Neutrophil cytoplasmic Ab.cl assic Qn (S)Ordered By: Sheldon Khan on 01-22-2025 Cytoplasmic ANCA (c-ANCA) Antibody <1:20 titer Neg:<1:20 [facility] Neutrophil cytoplasmic Ab.pe rinuclear IF (S) [Titer]Ordered By: Sheldon Khan on 01-22-2025 Perinuclear ANCA (p-ANCA) Antibody <1:20 titer Neg:<1:20 [facility] Comment on above: The presence of posi tive fluorescence exhibiting P-ANCA orC-ANCA patterns alone is not specific for the diagnosis ofWegener's Granulomatosis (WG) or microscopic polyangiitis.Decisions about treatment should not be based solely onANCA IFA results. The International ANCA Group Consensusrecommends follow up testing of positive sera with both DC-3 and MPO-ANCA enzyme immunoassays. As many as 5% serumsamples are positive only by EIA. Ref. AM J Clin [id number];111:507-513. Neutrophil percentageOrdered By: Sheldon Khan on 01-22-2025 Neutrophils/100 WBC (Bld) 49.8 % 47-70 [facility] No Panel InformationOrdered By: Sheldon Khan on 01-22-2025 ZEYAD 8 Profile TNP [facility] Comment on above: Test not performed ZEYAD 8 Profile Comment . [facility] Comment on above: Autoantibody Disease Association Condition Frequency Antinuclear Antibody, SLE, mixed connectiveDirect (ZEYAD-D) tissue diseases dsDNA SLE 40 - 60% Chromatin Drug induced SLE 90% SLE 48 - 97% SSA (Ro) SLE 25 - 35% Sjogren's Syndrome 40 - 70% Lupus 100% SSB (La) SLE 10% Sjogren's Syndrome 30% Sm (anti-Khan) SLE 15 - 30% RNP Mixed Connective Tissue Disease 95%(U1 nRNP, SLE 30 - 50%anti-ribonucleoprotein) Polymyositis and/or Dermatomyositis 20% Scl-70 (antiDNA Scleroderma (diffuse) 20 - 35%topoisomerase) Crest 13% Jo-1 Polymyositis and/or Dermatomyositis 20 - 40% Centromere B Scleroderma - Crest variant 80% Ribosomal P SLE 10 - 20%Performed at: [address] [id number] Director: Jayden Wu PhD, Phone: [phone] reported result: TNP Edited by: KALEB on 01/26/25:1307 AMENDED REPORT 01/26/25 1307 COMMENT previously reported as: Test not performed Nucleated red blood cell per centageOrdered By: Sheldon Khan on 01-22-2025 Nucleated RBC/100 WBC (Bld) [Ratio] 0 % 0-5 [facility] Platelet countOrdered By: Akash Khan on 01-22-2025 Platelets (Bld) [#/Vol] 326 10*3/uL 150-450 [facility] Potassium (Unsp spec) [Mass/ Vol]Ordered By: Sheldon Khan on 01-22-2025 Potassium [Moles/Vol] 3.8 mmol/L 3.3-5.1 [facility] Protein Fractions Elph [Inte rp]Ordered By: Sheldon Khan on 01-22-2025 Protein Electrophoresis Interpret Comment . [facility] Comment on above: Protein electrophore sis scan will follow via computer,mail, or electrical apprentice delivery. Protein.monoclonal Elph [Mas s/Vol]Ordered By: Sheldon Khan on 01-22-2025 Protein Electrophoresis M-Jamie Not Observed g/dL Not Observed [facility] RBC Auto (Bld) [#/Vol]Ordere d By: Sheldon Khan on 01-22-2025 RBC (Bld) [#/Vol] 5.49 10*6/uL 4.6-6.2 [facility] MANAGING BROKER abOrdered By: Sheldon Khan on 01-22-2025 MANAGING BROKER Antibody TNP [facility] Comment on above: Test not performed MANAGING [employer] Antibody <0.2 AI 0.0-0.9 [facility] Comment on above: Previous reported re sult: TNP AIEdited by: KALEB on 01/26/25:1307 AMENDED REPORT 01/26/25 1307 MANAGING BROKER Ab previously reported as: Test not performed Rheumatoid Factoron 01-23-20 RHEUMATOID FAC < 10.0 Normal <15 [facility] Comment on above: Performed By: #### L 3100.5475, L501.6710, L101.9900, L501.9520, L100.0100 #### [facility] [address] [place], [address] Rheumatoid factor Ql (S)Orde red By: Sheldon Khan on 01-22-2025 Rheumatoid Factor < 10.0 IU/mL <15 [facility] Ribosomal P protein antibody assayOrdered By: Sheldon Khan on 01-22-2025 Ribosomal P [facility] on [facility]: Test not performed Ribosomal P Protein Antibody <0.2 AI 0.0-0.9 [facility] Comment on above: Previous reported re sult: TNP AIEdited by: KALEB on 01/26/25:1307 AMENDED REPORT 01/26/25 1307 Anti-P previously reported as: Test not performed SCL-70 extractable nuclear A b Qn (S)Ordered By: Sheldon Khan on 01-22-2025 Scl-70 (Scleroderma) Antibody <0.2 AI 0.0-0.9 [facility] SS-A IgG antibody assayOrder ed By: Sheldon Khan on 01-22-2025 SS-A/Ro IgG Antibody TNP [facility] Comment on above: Test not performed SS-A/Ro IgG Antibody < 0.2 AI 0.0-0.9 [facility] Comment on above: Previous reported re sult: TNP AIEdited by: KALEB on 01/26/25:1307 AMENDED REPORT 01/26/25 1307 Anti-SS-A previously reported as: Test not performed SS-B IgG antibody assayOrder ed By: Sheldon Khan on 01-22-2025 SS-B/La [facility] on above: Test not performed SS-B/La IgG Antibody < 0.2 AI 0.0-0.9 [facility] Comment on above: Previous reported re sult: TNP AIEdited by: KALEB on 01/26/25:1307 AMENDED REPORT 01/26/25 1307 Anti-SS-B previously reported as: Test not performed Serum creatinine measurement (mass/volume)Ordered By: Sheldon Khan on 01-22-2025 Creatinine [Mass/Vol] 0.86 mg/dL 0.70-1.20 [facility] Serum globulin measurementOr dered By: Sheldon Khan on 01-22-2025 Globulin (S) [Mass/Vol] 3.5 g/dL 2.2-4.2 [facility] Serum glucose measurement (m ass/volume)Ordered By: Sheldon Khan on 01-22-2025 Glucose [Mass/Vol] 97 mg/dL 70-99 [facility] Serum or plasma alanine olmstead otransferase (ALT) measurementOrdered By: Sheldon Khan on 01-22-2025 ALT [Catalytic activity/Vol] 27 U/L <47 [facility] Serum or plasma albumin zakiya urement (mass/volume)Ordered By: Sheldon Khan on 01-22-2025 Albumin [Mass/Vol] 4.3 g/dL 3.5-5.0 [facility] Serum or plasma albumin/glob ulin mass ratioOrdered By: Sheldon Khan on 01-22-2025 Albumin/Globulin [Mass ratio] 1.2 {ratio} 0.9-2.4 [facility] Serum or plasma alkaline pravin sphatase measurementOrdered By: Sheldon Khan on 01-22-2025 ALP [Catalytic activity/Vol] 103 U/L 40-129 [facility] Serum or plasma calcium zakiya urement (mass/volume)Ordered By: Sheldon Khan on 01-22-2025 Calcium [Mass/Vol] 9.3 mg/dL 7.6-11.0 [facility] Serum or plasma protein zakiya urement (mass/volume)Ordered By: Sheldon Khan on 01-22-2025 Protein [Mass/Vol] 7.6 g/dL 6.0-8.5 [facility] Serum or plasma urea nitroge n measurement (mass/volume)Ordered By: Sheldon Khan on 01-22-2025 Urea nitrogen [Mass/Vol] 16 mg/dL 4-19 [facility] Khan antibody assayOrdered By: Sheldon Khan on 01-22-2025 SM Antibody TNP [facility] Comment on above: Test not performed SM Antibody <0.2 AI 0.0-0.9 [facility] Comment on above: Previous reported re sult: TNP AIEdited by: KALEB on 01/26/25:1307 AMENDED REPORT 01/26/25 1307 BILL Ab previously reported as: Test not performed Sodium levelOrdered By: Sheldon Khan on 01-22-2025 Sodium [Moles/Vol] 137 mmol/L 133-145 [facility] TSH DL <= 0.005 mIU/L QnOrde red By: Sheldon Khan on 01-22-2025 Thyroid Stimulating Hormone (TSH) 1.930 uIU/mL 0.300-4.20 0 [facility] Thyroid Stim Hormone (TSH)on 01-22-2025 TSH 1.930 uIU/mL Normal 0.300-4.20 0 [facility] Comment on above: Performed By: #### L 3100.5475, L501.6710, L101.9900, L501.9520, L100.0100 #### [facility] [address] [place], [address] Total hemolytic (CH50) compl ement assayOrdered By: Sheldon Khan on 01-22-2025 Total Complement (CH50) > 60 U/mL >41 [facility] Comment on above: Age Male Female 1 - 30 days Not Estab. Not Estab. 31 days - 6 months >32 >20 7 months - 17 years >39 >39 >17 years >41 >41 NOTE: The adult (>17 years) reference interval range is used to flag abnormals on this report. If the patient is 17 years old or younger, use the table above to determine out of range values. Total proteinOrdered By: Evelin Khan on 01-22-2025 Protein [Mass/Vol] 7.9 g/dL 5.9-8.4 [facility] White blood cell (WBC) count Ordered By: Sheldon Khan on 01-22-2025 WBC (Bld) [#/Vol] 9.2 10*3/uL 4.4-11.0 [facility] ANTINUCLEAR ANTIBODIES DIREC Ton 01-15-2025 ZEYAD,DIRECT Negative Normal Negative [facility] Comment on above: Result Comment: Perf ormed at: [facility] - [facility] [address] [place], [place] [id number] Motor Generator Set Operator: Jayden Wu PhD, Phone: [phone] Performed By: #### L 3100.5475, L501.6710, L101.9900, L501.9520, L100.0100 #### [facility] [address] [place], [place], [id number] ZEYAD serumOrdered By: Sheldon bae on 01-14-2025 Anti-Nuclear Antibody Screen Negative Negative [facility] Comment on above: Performed at: [facility] [id number] [place], [place] [id number] Director: Jayden Wu PhD, Phone: [phone] Absolute neutrophil countOrd ered By: Sheldon Khan on 01-14-2025 Neutrophils (Bld) [#/Vol] 4.2 10*3/uL 2.0-7.7 [facility] Basophil percentageOrdered B y: Sheldon Khan on 01-14-2025 Basophils/100 WBC (Bld) 1.0 % 0-1 [facility] CBC W/Diff, Automatedon Absolute Lymph 2.45 X10 3/uL Normal 0.83-4.51 [facility] Comment on above: Performed By: #### L 3100.5475, L501.6710, L101.9900, L501.9520, L100.0100 #### [facility] [address] [place], [address] Absolute Neut 4.2 X10 3/uL Normal 2.0-7.7 [facility] Comment on above: Performed By: #### L 3100.5475, L501.6710, L101.9900, L501.9520, L100.0100 #### [facility] [address] [place], [address] Basophils/100 WBC (Bld) 1.0 % Normal 0-1 [facility] Comment on above: Performed By: #### L 3100.5475, L501.6710, L101.9900, L501.9520, L100.0100 #### [facility] [address] [place], [address] Eosinophils/100 WBC (Bld) 12.1 % High 0-5 [facility] Comment on above: Performed By: #### L 3100.5475, L501.6710, L101.9900, L501.9520, L100.0100 #### [facility] [address] [place], [address] Erythrocyte distribution width (RBC) [Ratio] 13.2 % Normal 11.6-14.6 [facility] Comment on above: Performed By: #### L 3100.5475, L501.6710, L101.9900, L501.9520, L100.0100 #### [facility] [address] [place], [address] Hematocrit (Bld) [Volume fraction] 47.6 % Normal 40-54 [facility] Comment on above: Performed By: #### L 3100.5475, L501.6710, L101.9900, L501.9520, L100.0100 #### [facility] [address] [place], [address] Hemoglobin (Bld) [Mass/Vol] 16.5 g/dL Normal 13.0-16.5 [facility] Comment on above: Performed By: #### L 3100.5475, L501.6710, L101.9900, L501.9520, L100.0100 #### [facility] [address] [place], [address] IG% 0.400 Normal 0.0-0.9 [facility] Comment on above: Result Comment: IG% - Immature Granulocytes (promyelocytes, myelocytes and metamyelocytes) > 1% indicates that a LEFT SHIFT is Present. Performed By: #### L 3100.5475, L501.6710, L101.9900, L501.9520, L100.0100 #### [facility] [address] [place], [address] Lymphocytes/100 WBC (Bld) 29.2 % Normal 19-41 [facility] Comment on above: Performed By: #### L 3100.5475, L501.6710, L101.9900, L501.9520, L100.0100 #### [facility] [address] [place], [address] MCH (RBC) [Entitic mass] 29.5 pg Normal 27.0-32.0 [facility] Comment on above: Performed By: #### L 3100.5475, L501.6710, L101.9900, L501.9520, L100.0100 #### [facility] [address] [place], [address] MCHC (RBC) [Mass/Vol] 34.7 g/dL Normal 32-36 [facility] Comment on above: Performed By: #### L 3100.5475, L501.6710, L101.9900, L501.9520, L100.0100 #### [facility] [address] [place], [address] MCV (RBC) [Entitic vol] 85.2 fL Normal 80-94 [facility] Comment on above: Performed By: #### L 3100.5475, L501.6710, L101.9900, L501.9520, L100.0100 #### [facility] [address] [place], [address] Monocytes/100 WBC (Bld) 7.9 % Normal 0-10 [facility] Comment on above: Performed By: #### L 3100.5475, L501.6710, L101.9900, L501.9520, L100.0100 #### [facility] [address] [place], [address] Neutrophils/100 WBC (Bld) 49.4 % Normal 47-70 [facility] Comment on above: Performed By: #### L 3100.5475, L501.6710, L101.9900, L501.9520, L100.0100 #### [facility] [address] [place], [address] Nucleated RBC (Bld) [#/Vol] 0 10*3/uL Normal 0-5 [facility] Comment on above: Performed By: #### L 3100.5475, L501.6710, L101.9900, L501.9520, L100.0100 #### [facility] [address] [place], [address] Platelet mean volume (Bld) [Entitic vol] 10.6 fL Normal 6.2-12.0 [facility] Comment on above: Performed By: #### L 3100.5475, L501.6710, L101.9900, L501.9520, L100.0100 #### [facility] [address] [place], [address] Platelets (Bld) [#/Vol] 317 10*3/uL Normal 150-450 [facility] Comment on above: Performed By: #### L 3100.5475, L501.6710, L101.9900, L501.9520, L100.0100 #### [facility] [address] [place], [address] RBC (Bld) [#/Vol] 5.59 10*6/uL Normal 4.6-6.2 [facility] Comment on above: Performed By: #### L 3100.5475, L501.6710, L101.9900, L501.9520, L100.0100 #### [facility] [address] [place], [address] RDW SD 40.7 fl Normal 35.1-43.9 [facility] Comment on above: Performed By: #### L 3100.5475, L501.6710, L101.9900, L501.9520, L100.0100 #### [facility] [address] [place], [address] WBC (Bld) [#/Vol] 8.4 10*3/uL Normal 4.4-11.0 [facility] Comment on above: Performed By: #### L 3100.5475, L501.6710, L101.9900, L501.9520, L100.0100 #### [facility] [address] [place], [address] CRPon 01-14-2025 C-REACTIVE PROT < 3.00 Normal 0.0-3.0 [facility] Comment on above: Performed By: #### L 3100.5475, L501.6710, L101.9900, L501.9520, L100.0100 #### [facility] [address] [place], [address] CRP [Mass/Vol]Ordered By: Akash Khan on 01-14-2025 C-Reactive Protein Extended Range < 3.00 mg/L 0.0-3.0 [facility] Eosinophil percentageOrdered By: Sheldon Khan on 01-14-2025 Eosinophils/100 WBC (Bld) 12.1 % High 0-5 [facility] Erythrocyte Sed Rateon 01-14 SED RATE 15 mm/hr Normal 0-20 [facility] Comment on above: Performed By: #### L 3100.5475, L501.6710, L101.9900, L501.9520, L100.0100 #### [facility] [address] [place], [address] Erythrocyte distribution wid th ratioOrdered By: Sheldon Khan on 01-14-2025 Erythrocyte distribution width (RBC) [Ratio] 13.2 % 11.6-14.6 [facility] Erythrocyte distribution wid th standard deviationOrdered By: Sheldon Khan on 01-14-2025 Erythrocyte distribution width (RBC) [Entitic vol] 40.7 fL 35.1-43.9 [facility] Erythrocyte sedimentation ra teOrdered By: Sheldon Khan on 01-14-2025 ESR (Bld) [Velocity] 15 mm/h 0-20 [facility] Hematocrit Auto (Bld) [Volum e fraction]Ordered By: Sheldon Khan on 01-14-2025 Hematocrit (Bld) [Volume fraction] 47.6 % 40-54 [facility] Hemoglobin measurementOrdere d By: Sheldon Khan on 01-14-2025 Hemoglobin (Bld) [Mass/Vol] 16.5 g/dL 13.0-16.5 [facility] Immature granulocytes/100 WB C Auto (Bld)Ordered By: Sheldon Khan on 01-14-2025 Immature granulocytes/100 WBC (Bld) 0.400 % 0.0-0.9 [facility] Comment on above: IG% - Immature Granu locytes (promyelocytes, myelocytes and metamyelocytes) > 1% indicates that a LEFT SHIFT is Present. Lymphocytes Auto (Unsp spec) [#/Vol]Ordered By: Sheldon Khan on 01-14-2025 Lymphocytes (Bld) [#/Vol] 2.45 10*3/uL 0.83-4.51 [facility] Lymphocytes/100 WBC Auto (Un sp spec)Ordered By: Sheldon Khan on 01-14-2025 Lymphocytes/100 WBC (Bld) 29.2 % 19-41 [facility] MCV (mean corpuscular volume ) determinationOrdered By: Sheldon Khan on 01-14-2025 MCV (RBC) [Entitic vol] 85.2 fL 80-94 [facility] Mean corpuscular hemoglobin (MCH) determinationOrdered By: Sheldon Khan on 01-14-2025 MCH (RBC) [Entitic mass] 29.5 pg 27.0-32.0 [facility] Mean corpuscular hemoglobin concentration (MCHC) determinationOrdered By: Sheldon Khan on 01-14-2025 MCHC (RBC) [Mass/Vol] 34.7 g/dL 32-36 [facility] Mean platelet volume determi nationOrdered By: Sheldon Khan on 01-14-2025 Platelet mean volume (Bld) [Entitic vol] 10.6 fL 6.2-12.0 [facility] Monocyte percentageOrdered B y: Sheldon Khan on 01-14-2025 Monocytes/100 WBC (Bld) 7.9 % 0-10 [facility] Neutrophil percentageOrdered By: Sheldon Khan on 01-14-2025 Neutrophils/100 WBC (Bld) 49.4 % 47-70 [facility] Nucleated red blood cell per centageOrdered By: Sheldon Khan on 01-14-2025 Nucleated RBC/100 WBC (Bld) [Ratio] 0 % 0-5 [facility] Platelet countOrdered By: Akash Khan on 01-14-2025 Platelets (Bld) [#/Vol] 317 10*3/uL 150-450 [facility] RBC Auto (Bld) [#/Vol]Ordere d By: Sheldon Khan on 01-14-2025 RBC (Bld) [#/Vol] 5.59 10*6/uL 4.6-6.2 [facility] TSH DL <= 0.005 mIU/L QnOrde red By: Sheldon Khan on 01-14-2025 Thyroid Stimulating Hormone (TSH) 2.900 uIU/mL 0.300-4.20 0 [facility] Thyroid Stim Hormone (TSH)on 01-14-2025 TSH 2.900 uIU/mL Normal 0.300-4.20 0 [facility] Comment on above: Performed By: #### L 3100.5407, L501.6710, L101.9900, L501.9520, L100.0100 #### [facility] [address] [place], [place], [id number] White blood cell (WBC) count Ordered By: Sheldon Khan on 01-14-2025 WBC (Bld) [#/Vol] 8.4 10*3/uL 4.4-11.0 [facility] Albumin to globulin ratioOrd ered By: Sheldon Khan on 12-23-2024 Albumin/Globulin [Mass ratio] 0.9 {ratio} 0.9-2.4 [facility] Bilirubin, totalOrdered By: Sheldon Khan on 12-23-2024 Bilirubin [Mass/Vol] 0.70 mg/dL 0.20-1.00 [facility] Comment on above: For patients on eltr ombopag therapy, use of Dimension Anabel TBIL is not recommended. Blood urea nitrogen (BUN)/cr eatinine ratioOrdered By: Sheldon Khan on 12-23-2024 Urea nitrogen/Creatinine [Mass ratio] 14.5 mg/mg 10-20 [facility] Carbon dioxide measurementOr dered By: Sheldon Khan on 12-23-2024 CO2 [Moles/Vol] 22.0 mmol/L 21.0-32.0 [facility] Chloride measurementOrdered By: Sheldon Khan on 12-23-2024 Chloride [Moles/Vol] 106 mmol/L 98-107 [facility] Comprehensive Metabolic Prof ilon 12-23-2024 Albumin [Mass/Vol] 3.8 g/dL Normal 3.2-5.0 [facility] Comment on above: Performed By: #### L 500.4050, L502.0250 #### [facility] [address] [place], [address] Albumin/Globulin [Mass ratio] 0.9 {ratio} Normal 0.9-2.4 [facility] Comment on above: Performed By: #### L 500.4050, L502.0250 #### [facility] [address] [place], [address] ALK P 108 U/L Normal 45-117 [facility] Comment on above: Performed By: #### L 500.4050, L502.0250 #### [facility] [address] [place], [address] ALT [Catalytic activity/Vol] 33 U/L Normal 16-61 [facility] Comment on above: Performed By: #### L 500.4050, L502.0250 #### [facility] [address] [place], [address] AST [Catalytic activity/Vol] 19 U/L Normal 15-37 [facility] Comment on above: Performed By: #### L 500.4050, L502.0250 #### [facility] [address] [place], [address] Bilirubin [Mass/Vol] 0.70 mg/dL Normal 0.20-1.00 [facility] Comment on above: Result Comment: For patients on eltrombopag therapy, use of Dimension Anabel TBIL is not recommended. Performed By: #### L 500.4050, L502.0250 #### [facility] [address] [place], [address] BUN/CRE 14.5 RATIO Normal 10-20 [facility] Comment on above: Performed By: #### L 500.4050, L502.0250 #### [facility] [address] [place], [address] CA,Total 9.1 mg/dL Normal 8.5-10.1 [facility] Comment on above: Performed By: #### L 500.4050, L502.0250 #### [facility] [address] [place], [address] Chloride [Moles/Vol] 106 mmol/L Normal 98-107 [facility] Comment on above: Performed By: #### L 500.4050, L502.0250 #### [facility] [address] [place], [address] CO2 [Moles/Vol] 22.0 mmol/L Normal 21.0-32.0 [facility] Comment on above: Performed By: #### L 500.4050, L502.0250 #### [facility] [address] [place], [address] Creatinine [Mass/Vol] 0.96 mg/dL Normal 0.70-1.30 [facility] Comment on above: Result Comment: The validity of the calculated GFR GFRAA in patients over 70 years has not been determined. Clinical correlation is essential. Performed By: #### L 500.4050, L502.0250 #### [facility] [address] [place], [address] EST GFR - AA 103 mL/min Normal >60 [facility] Comment on above: Result Comment: Afri can Liberian GFR Calc Performed By: #### L 500.4050, L502.0250 #### [facility] [address] [place], [address] GAP 10 Normal 5-15 [facility] Comment on above: Performed By: #### L 500.4050, L502.0250 #### [facility] [address] [place], [address] GFR/1.73 sq M.predicted among non-blacks MDRD (S/P/Bld) [Vol rate/Area] 85 mL/min/{1.73_m2} Normal >60 [facility] Comment on above: Result Comment: Non- GFR Calc Performed By: #### L 500.4050, L502.0250 #### [facility] [address] [place], [address] Globulin (S) [Mass/Vol] 4.3 g/dL High 2.2-4.2 [facility] Comment on above: Performed By: #### L 500.4050, L502.0250 #### [facility] [address] [place], [address] Glucose [Mass/Vol] 98 mg/dL Normal 74-106 [facility] Comment on above: Performed By: #### L 500.4050, L502.0250 #### [facility] [address] [place], [address] Potassium [Moles/Vol] 3.6 mmol/L Normal 3.5-5.1 [facility] Comment on above: Performed By: #### L 500.4050, L502.0250 #### [facility] [address] [place], [address] Sodium [Moles/Vol] 137 mmol/L Normal 136-145 [facility] Comment on above: Performed By: #### L 500.4050, L502.0250 #### [facility] [address] [place], [address] T PROT 8.1 g/dL Normal 6.4-8.2 [facility] Comment on above: Performed By: #### L 500.4050, L502.0250 #### [facility] [address] [place], [address] Urea nitrogen [Mass/Vol] 14 mg/dL Normal 7-18 [facility] Comment on above: Performed By: #### L 500.4050, L502.0250 #### [facility] [address] [place], [address] Estimated glomerular filtrat ion rate (GFR) AmericanOrdered By: Sheldon Khan on 12-23-2024 Estimated GFR (MDRD) Amer 103 mL/min >60 [facility] Comment on above: GFR Calc Glomerular filtration rate ( GFR) estimationOrdered By: Sheldon Khan on 12-23-2024 Estimated GFR (MDRD) Non-Af Amer 85 mL/min >60 [facility] Comment on above: Non- GFR Calc Glucose measurementOrdered B y: Sheldon Khan on 12-23-2024 Glucose [Mass/Vol] 98 mg/dL 74-106 [facility] Laboratory - Chemistry and C hemistry - challengeOrdered By: Sheldon Khan on 12-23-2024 AST [Catalytic activity/Vol] 19 U/L 15-37 [facility] Microalb:Creat Ratio,Random URon 12-23-2024 Creatinine [Mass/Vol] 130.00 mg/dL Normal NO RAN GE EST. [facility] Comment on above: Performed By: #### L 500.4050, L502.0250 #### [facility] [address] [place], [address] MALB:CRE 7.4 mg/g CRE Normal <30 mg/g CRE [facility] Comment on above: Performed By: #### L 500.4050, L502.0250 #### [facility] [address] [place], [address] MICROALBUMIN,UR 9.6 mg/L Normal NO RANGE EST. [facility] Comment on above: Performed By: #### L 500.4050, L502.0250 #### [facility] [address] [place], [address] Potassium measurementOrdered By: Sheldon Khan on 12-23-2024 Potassium [Moles/Vol] 3.6 mmol/L 3.5-5.1 [facility] Random urine microalbumin me asurementOrdered By: Sheldon Khan on 12-23-2024 Urine Random Microalbumin 9.6 mg/L NO RANGE EST. [facility] Serum anion gap measurementO rdered By: Sheldon Khan on 12-23-2024 Anion gap [Moles/Vol] 10 mmol/L 5-15 [facility] Serum globulin measurementOr dered By: Sheldon Khan on 12-23-2024 Globulin (S) [Mass/Vol] 4.3 g/dL High 2.2-4.2 [facility] Serum or plasma alanine olmstead otransferase (ALT) measurementOrdered By: Sheldon Khan on 12-23-2024 ALT [Catalytic activity/Vol] 33 U/L 16-61 [facility] Serum or plasma albumin zakiya urement (mass/volume)Ordered By: Sheldon Khan on 12-23-2024 Albumin [Mass/Vol] 3.8 g/dL 3.2-5.0 [facility] Serum or plasma alkaline pravin sphatase measurementOrdered By: Sheldon Khan on 12-23-2024 ALP [Catalytic activity/Vol] 108 U/L 45-117 [facility] Serum or plasma calcium zakiya urement (mass/volume)Ordered By: Sheldon Khan on 12-23-2024 Calcium [Mass/Vol] 9.1 mg/dL 8.5-10.1 [facility] Serum or plasma creatinine m easurement (mass/volume)Ordered By: Sheldon Khan on 12-23-2024 Creatinine [Mass/Vol] 0.96 mg/dL 0.70-1.30 [facility] Comment on above: The validity of the calculated GFR & GFRAA in patients over 70 years has not been determined. Clinical correlation is essential. Serum or plasma urea nitroge n measurement (mass/volume)Ordered By: Sheldon Khan on 12-23-2024 Urea nitrogen [Mass/Vol] 14 mg/dL 7-18 [facility] Sodium levelOrdered By: Sheldon Khan on 12-23-2024 Sodium [Moles/Vol] 137 mmol/L 136-145 [facility] Total proteinOrdered By: Evelin Khan on 12-23-2024 Protein [Mass/Vol] 8.1 g/dL 6.4-8.2 [facility] Urine albumin/creatinine rat io for detection of microalbuminuriaOrdered By: Sheldon Khan on 12-23-2024 Urine Microalbumin/Creatinine Ratio 7.4 mg/g CRE <30 [facility] Urine creatinine measurement (mass/volume)Ordered By: Sheldon Khan on 12-23-2024 Creatinine (U) [Mass/Vol] 130.00 mg/dL NO RANGE EST. [facility] Comprehensive Metabolic Prof ilon 06-24-2024 Albumin [Mass/Vol] 3.7 g/dL Normal 3.2-5.0 [facility] Comment on above: Performed By: #### L 506.1000, L500.4050 #### [facility] [place], [place], [id number] Albumin/Globulin [Mass ratio] 0.9 {ratio} Normal 0.9-2.4 [facility] Comment on above: Performed By: #### L 506.1000, L500.4050 #### [facility] [address] [place], [address] ALK P 110 U/L Normal 45-117 [facility] Comment on above: Performed By: #### L 506.1000, L500.4050 #### [facility] [address] [place], [address] ALT [Catalytic activity/Vol] 37 U/L Normal 16-61 [facility] Comment on above: Performed By: #### L 506.1000, L500.4050 #### [facility] [address] [place], [address] AST [Catalytic activity/Vol] 28 U/L Normal 15-37 [facility] Comment on above: Performed By: #### L 506.1000, L500.4050 #### [facility] [address] [place], [address] Bilirubin [Mass/Vol] 1.10 mg/dL High 0.20-1.00 [facility] Comment on above: Result Comment: For patients on eltrombopag therapy, use of Dimension Anabel TBIL is not recommended. Performed By: #### L 506.1000, L500.4050 #### [facility] [address] [place], [address] BUN/CRE 16.7 RATIO Normal 10-20 [facility] Comment on above: Performed By: #### L 506.1000, L500.4050 #### [facility] [address] [place], [address] CA,Total 8.8 mg/dL Normal 8.5-10.1 [facility] Comment on above: Performed By: #### L 506.1000, L500.4050 #### [facility] [address] [place], [address] Chloride [Moles/Vol] 104 mmol/L Normal 98-107 [facility] Comment on above: Performed By: #### L 506.1000, L500.4050 #### [facility] [address] [place], [address] CO2 [Moles/Vol] 23.0 mmol/L Normal 21.0-32.0 [facility] Comment on above: Performed By: #### L 506.1000, L500.4050 #### [facility] [address] [place], [address] Creatinine [Mass/Vol] 1.08 mg/dL Normal 0.70-1.30 [facility] Comment on above: Result Comment: The validity of the calculated GFR GFRAA in patients over 70 years has not been determined. Clinical correlation is essential. Performed By: #### L 506.1000, L500.4050 #### [facility] [address] [place], [address] EST GFR - AA 91 mL/min Normal >60 [facility] Comment on above: Result Comment: Afri can Liberian GFR Calc Performed By: #### L 506.1000, L500.4050 #### [facility] [address] [place], [address] GAP 8 Normal 5-15 [facility] Comment on above: Performed By: #### L 506.1000, L500.4050 #### [facility] [address] [place], [address] GFR/1.73 sq M.predicted among non-blacks MDRD (S/P/Bld) [Vol rate/Area] 75 mL/min/{1.73_m2} Normal >60 [facility] Comment on above: Result Comment: Non- GFR Calc Performed By: #### L 506.1000, L500.4050 #### [facility] [address] [place], [address] Globulin (S) [Mass/Vol] 4.2 g/dL Normal 2.2-4.2 [facility] Comment on above: Performed By: #### L 506.1000, L500.4050 #### [facility] [address] [place], [address] Glucose [Mass/Vol] 92 mg/dL Normal 74-106 [facility] Comment on above: Performed By: #### L 506.1000, L500.4050 #### [facility] [address] [place], [address] Potassium [Moles/Vol] 3.7 mmol/L Normal 3.5-5.1 [facility] Comment on above: Performed By: #### L 506.1000, L500.4050 #### [facility] [address] [place], [address] Sodium [Moles/Vol] 135 mmol/L Low 136-145 [facility] Comment on above: Performed By: #### L 506.1000, L500.4050 #### [facility] [address] [place], [address] T PROT 7.9 g/dL Normal 6.4-8.2 [facility] Comment on above: Performed By: #### L 506.1000, L500.4050 #### [facility] [address] [place], [address] Urea nitrogen [Mass/Vol] 18 mg/dL Normal 7-18 [facility] Comment on above: Performed By: #### L 506.1000, L500.4050 #### [facility] [address] [place], [address] Vitamin D,25 Hydroxyon 06-24 Vitamin D 25-OH 41.3 ng/mL Normal [facility] Comment on above: Result Comment: Hilaria min D 25(OH) Status Range Deficiency <20 ng/mL (50nmol/L) Insufficiency 20 - 30 ng/mL (50 - 75 nmol/L) Sufficiency 30 - 100 ng/mL (75 - 250 nmol/L) Toxicity >100 ng/mL (>250 nmol/L) Performed By: #### L 506.1000, L500.4050 #### [facility] [address] [place], [address] [facility] -- TOM SALAZAR ([id number]) 1970 M Date Time Provider Department 09/05/23 LOI YAN [facility] During your visit today, we recorded the following information about you: Loi Yan APRN.CNP 09/05/2023 7:13 AM Signed You tested positive for COVID-19 Follow the [...] care provider or schedule a visit with [employer] [facility]. A test is not recommended to return to work/school when meeting the above criteria. Peg Penaloza MA 09/05/2023 11:15 AM Signed Patient notified of results, verbalized understanding of information as listed below. Peg Penaloza MA Allergies As of Date: 09/05/2023 (No Known Allergies) Date Reviewed: 09/04/2023 Reviewed by: Ivon Christopher APRN.CNP - Fully Assessed Reason for Visit: Results [95] Prescriptions as of 09/05/2023 - amLODIPine-Benazepril 10-40 mg per capsule - atorvastatin (LIPITOR) 40 mg tablet - Cetirizine (ZYRTEC) 10 mg cap Take by mouth. - benzonatate (TESSALON PERLE) 100 mg capsule Take 2 capsules by mouth three times a day as needed. Problem List As Of Date: 09/05/2023 (None) Encounter Status:Closed by PEG PENALOZA on 09/05/23 [facility] CNOVon 09-04-2023 CNOV Office Visit ([facility] ) -- TOM SALAZAR ([id number]) 1970 M Date Time Provider Department 09/04/23 11:45 AM IVON CHRISTOPHER [facility] During your visit today, we recorded the following information about you: Temperature Pulse Respiration Blood pressure 97.7 degrees 72/minute 16/minute 120/80 Weight 116.1 kg Ivon Christopher APRN.CNP 09/04/2023 12:01 PM Signed Subjective The history is provided by the patient. No speech and language tutor was used. HPI Tom Salazar is a 53 year old male who [...] have confirmed and edited as necessary, the [facility] Review of Systems Constitutional: Negative for chills [...] in 12-24 hours with results, available on [employer] prn mucinex - COVID NAAT, UPPER RESPIRATORY, ROUTINE Diagnosis and treatment plan were discussed and questions were answered to the patient's satisfaction. Pt acknowledged understanding of concepts and follow up plan. Specific signs and symptoms that would indicate the need for higher level of care were discussed in detail warranting prompt ER evaluation. Ivon Christopher APRN.Ivon Morin APRN.CNP 09/04/2023 11:56 AM Signed covid and influenza test ordered You will be notified in 12-24 hours, results available on MyChart Home isolation until results are back Rest, [...] breathing, shortness of breath, inability to swallow. Allergies As of Date: 09/04/2023 (No Known Allergies) Date Reviewed: 09/04/2023 Reviewed by: Ivon Christopher APRN.TYRON - Fully Assessed Reason for Visit: Sinus Problem [99] Cmt: sinus pressure, drainage, headache, savannah (more content not included)... Normal [facility] SARS-CoV-2 RNA Resp Ql MELY+p robeon 09-04-2023 SARS-CoV-2 (COVID-19) RNA MELY+probe Ql (Resp) COVID 19 RESULT: Detected The method used is RT-PCR or an equivalent NAAT method. Reference Range (the expected result in uninfected individuals): Not detected Normal [facility] Comment on above: Performed By: #### 9 4500-6 #### [facility] CLIA [id number] [address] [place] [address] [place] Basophil percentageon 2021 Bilirubin [Mass/Vol] 0.40 mg/dL 0.20-1.00 [facility] Work Phone: Comment on above: For patients on eltr ombopag therapy, use of Dimension Anabel TBIL is not recommended. Chloride [Moles/Vol] 108 mmol/L 98-107 [facility] Work Phone: Glucose [Mass/Vol] 107 mg/dL 74-106 [facility] Work Phone: Comment on above: Fasting Glucose resu lt from 100 to 125 mg/dL suggests IMPAIRED HOMEOSTASIS per A.D.A. criteria. Potassium [Moles/Vol] 4.0 mmol/L 3.5-5.1 [facility] Work Phone: Protein [Mass/Vol] 7.6 g/dL 6.4-8.2 [facility] Work Phone: Sodium [Moles/Vol] 137 mmol/L 136-145 [facility] Work Phone: Laboratory - Chemistry and C hemistry - challengeon 06-08-2022 ALP [Catalytic activity/Vol] 115 U/L 45-117 [facility] Work Phone: ALT [Catalytic activity/Vol] 34 U/L 16-61 [facility] Work Phone: CO2 [Moles/Vol] 23.0 mmol/L 21.0-32.0 [facility] Work Phone: Globulin (S) [Mass/Vol] 3.9 g/dL 2.2-4.2 [facility] Work Phone: Urea nitrogen/Creatinine [Mass ratio] 21.2 mg/mg 10-20 [facility] Work Phone: No Panel Informationon 06-08 Estimated GFR (MDRD) Amer 87 mL/min >60 [facility] Work Phone: Comment on above: GFR Calc Estimated GFR (MDRD) Non-Af Amer 72 mL/min >60 [facility] Work Phone: Comment on above: Non- GFR Calc Urine Microalbumin/Creatinine Ratio 7.0 mg/g CRE <30 [facility] Work Phone: Serum or plasma albumin zakiya urement (mass/volume)on 06-08-2022 Albumin [Mass/Vol] 3.7 g/dL 3.2-5.0 [facility] Work Phone: Serum or plasma albumin/glob ulin mass ratioon 06-08-2022 Albumin/Globulin [Mass ratio] 0.9 {ratio} 0.9-2.4 [facility] Work Phone: Serum or plasma calcium zakiya urement (mass/volume)on 06-08-2022 Calcium [Mass/Vol] 9.0 mg/dL 8.5-10.1 [facility] Work Phone: Serum or plasma creatinine m easurement (mass/volume)on 06-08-2022 Creatinine [Mass/Vol] 1.13 mg/dL 0.70-1.30 [facility] Work Phone: Comment on above: The validity of the calculated GFR & GFRAA in patients over 70 years has not been determined. Clinical correlation is essential. Serum or plasma urea nitroge n measurement (mass/volume)on 06-08-2022 Urea nitrogen [Mass/Vol] 24 mg/dL 7-18 [facility] Work Phone: Thin prep Papanicolaou smear with manual screeningon 06-08-2022 Thin prep Papanicolaou smear with manual screening 18 U/L 15-37 [facility] Work Phone: Thin prep Papanicolaou smear with manual screening 6 5-15 [facility] Work Phone: Thin prep Papanicolaou smear with manual screening 17.4 mg/L NO RANGE EST. [facility] Work Phone: Urine creatinine measurement (mass/volume)on 06-08-2022 Creatinine (U) [Mass/Vol] 250.00 mg/dL NO RANGE EST. [facility] Work Phone: Vital Signs Date Time Vital Sign Value Performing Clinician Sudhakar smith 09-04-2023 11:49-0400 Body temperature 97.7 [degF] Ivon Christopher FRUIT PITTER.[facility] Work Phone: [facility] 09-04-2023 11:49-0400 Body weight 116.12 kg Ivon Candi FRUIT PITTER.[employer] Work Phone: [facility] 09-04-2023 11:49-0400 Diastolic blood pressure 80 mm[Hg] Ivon Candi FR[employer] PITTER.[employer] Work Phone: [facility] 09-04-2023 11:49-0400 Heart rate 72 /min Ivon Candi FR[employer] P[employer]TER.[employer] Work Phone: [facility] 09-04-2023 11:49-0400 Respiratory rate 16 /min Ivon Candi FR[employer] P[employer]TER.[employer] Work Phone: [facility] 09-04-2023 11:49-0400 SaO2% (BldA) [Mass fraction] 98 % Ivon Candi FR[employer] P[employer]TER.[employer] Work Phone: [facility] 09-04-2023 11:49-0400 Systolic blood pressure 120 mm[Hg] Ivon Candi FR[employer] P[employer]TER.[employer] Work Phone: [facility] Encounters Encounter Date Encounter Type Care Provider Facility Start: 01-22-2025 End: 01-22-[address] Sheldon Khan MD Work Phone: [facility] Work Phone: Start: 01-22-2025 End: 01-22-[address] Sheldon Khan MD -Laboratory, [place] Work Phone: Start: 01-22-2025 End: 01-22-2025 ambulatory Sheldon Khan Facility:[facility] Start: 01-14-2025 End: 01-14-[address] Sheldon Khan MD Work Phone: [facility] Work Phone: Start: 01-14-2025 End: 01-14-[address] [facility]: 01-14-2025 End: 01-14-2025 ambulatory Sheldon Khan Facility:[facility] Start: 12-23-2024 End: 12-23-[address] Sheldon Khan MD -Laboratory, [place] Work Phone: Start: 12-23-2024 End: 12-23-2024 ambulatory Sheldon Khan Facility:[facility] Start: 06-24-2024 End: 06-24-[facility] Start: 09-05-2023 Telephone encounter Loi diaz FRUIT PITTER.INSPECTOR GOLF BALL Work Phone: [place] [employer] [facility] Comment on above: Results Start: 09-04-2023 End: 09-04-2023 ambulatory [facility] Facility:[facility] Start: 09-04-2023 End: 09-04-2023 Patient encounter procedure Ivon Ramirezk FRUIT PITTER.INSPECTOR GOLF BALL Work Phone: [place] [employer] [facility] Comment on above: URI with cough and c ongestion (Primary Dx) Start: 06-08-2022 End: 06-08-2022 [facility] Start: 05-05-2022 End: 05-05-2022 Patient encounter procedure Dilan Squires FRUIT PITTER.INSPECTOR GOLF BALL Work Phone: [place] [employer] [facility] Comment on above: Procedure not shamir d out (Primary Dx) Plan of Treatment Date Care Activity Detail Author Start: 07-29-2029 Urine microalbumin profile DTaP,Tdap,Td Vaccine (2 - Td or Tdap) [facility] Start: 01-22-2025 Quantitative measure ment of cryoglobulin in serum specimen [facility] Start: 01-22-2025 [facility] Start: 09-04-2023 End: 09-18-2023 SARS-CoV-2 (COVID-19) RNA [Presence] in Respiratory specimen by MELY with probe detection [facility] Work Phone: Comment on above: Expected: 09/04/2023 , Expires: 09/18/2023 Start: 08-07-2023 Shingrix Vaccine (2 of 2) Wiseman grix Vaccine (2 of 2) [facility] Start: 07-13-2023 Influenza vaccination Influenza Vacc ine (#1) [facility] Start: 02-12-2023 Prostate Cancer Scre ening Discussion Prostate Cancer Screening Discussion [facility] Start: 11-12-2022 Depression Assessment Depression Ass essment [facility] Start: 07-13-2022 Influenza vaccination INFLUENZ A (Season Ended) [facility] Start: 02-12-2018 SHINGRIX VACCINE (1 of 2) WISEMAN GRIX VACCINE (1 of 2) [facility] Start: 02-12-2013 COLOGUARD (FIT-DNA) COLOGUARD (FIT-D NA) [facility] Start: 02-12-2013 Colonoscopy COLONOSCOPY [facility] Start: 02-12-2013 COLORECTAL CANCER SCREENING COLORECTAL CANCER SCREENING [facility] Start: 02-12-[address] COLONOGRAPHY [facility] Start: 02-12-2013 DIABETES SCREEN DIABETES SCREEN [facility] Start: 02-12-2013 Diabetes Screening Diabetes Screenin g [facility] Start: 02-12-2013 FECAL OCCULT BLOOD FECAL OCCULT BLOO D [facility] Start: 02-12-2013 SIGMOIDOSCOPY SIGMOIDOSCOPY [facility] Start: 02-12-2003 Lipid 1996 panel - S sesar or Plasma Lipid Screening [facility] Start: 02-12-2003 LIPID SCREEN LIPID SCREEN [facility] Start: 02-12-1987 Urine microalbumin profile DTAP,TDAP,TD (1 - Tdap) [facility] Start: 02-12-1986 HEPATITIS C SCREENING HEPATITIS C SC REENING [facility] Start: 02-12-1986 HIV SCREENING HIV SCREENING [facility] Start: 1980 Adult depression screening assessment DEPRESSION SCREENING [facility] Start: 02-12-1973 COVID-19 VACCINE (#1) COVID-19 VACCI NE (#1) [facility] Start: 1968 Covid-19 Vaccine (#1) Covid-19 Vacci ne (#1) [facility] Start: 1970 Hepatitis B Vaccine (1 of 3 - 3-dose series) Hepatitis B Vaccine (1 of 3 - 3-dose series) [facility] Albumin/Globulin [Ma ss Ratio] in Serum or Plasma by Electrophoresis [facility] Antibody to Scl-70 measurement [facility] Complement C3 [Mass/volume] in Serum or Plasma [facility] Complement C4 [Mass/volume] in Serum or Plasma [facility] Complement total hemolytic CH50 [Units/volume] in Serum or Plasma [facility] Cryoglobulin [Presen ce] in Serum [facility] DNA double strand Ab [Units/volume] in Serum [facility] Electrophoresis: albumin [facility] Electrophoresis: [id number] [facility] Electrophoresis: [id number] [facility] Electrophoresis: abdiaziz ma globulin [facility] Globulin measurement [facility] Neutrophil cytoplasm ic Ab.classic [Units/volume] in Serum [facility] P-ANCA measurement [facility] Protein electrophore sis panel - Serum or Plasma [facility] Serum protein electrophoresis [facility] Total globulins measurement [facility] Immunizations Immunization Date Immunization Notes Care Provider [facility] 09-01-2020 influenza virus vacc ine, unspecified formulation Ivon Christopher APRN.INSPECTOR GOLF BALL Work Phone: [facility] Payers Date Payer Category Payer Unknown [id number] 2024 Self-pay [id number] 2021 Private Health Insurance [employer] A ETNA CHOICE POS II [id number] 2021-Present [phone] [address] [place] [address] POS [id number] 2021 Private Health Insurance [id number] 2021 Private Health Insurance [employer] A ETNA POS [id number] 2021-Present [phone] [address] [place] [address] POS [id number] Unknown [id number] Unknown [id number] Unknown [id number] Unknown [id number] Unknown [id number] Social History Date Type Detail Facility Start: 09-26-2019 Tobacco smoking status NHIS Tobacco smoking consumption unknown [facility] Work Phone: Start: 1970 Sex Assigned At Not on file [facility] Start: 09-26-2019 Non-smoker [facility] Start: 1970 Sex Assigned At Male [facility] Gender identity Not on file [facility] Start: 01-24-2025 End: 01-31-2025 Sex Male (finding) [facility] Note 09-05-2023 Telephone Encounter - Peg Penaloza MA - 09/05/2023 11:15 AM EDTTelephone Encounter - Loi Yan APRN.CNP - 09/05/2023 7:12 AM EDT Note Date & Type Note Facility 09-05-2023 Miscellaneous Notes Formattin g of this note might be different from the original. Patient notified of results, verbalized understanding of information as listed below. Peg Penaloza MA You tested positive for COVID-19 Follow [...] care provider or schedule a visit with [facility] Online. A test is not recommended to return to work/school when meeting the above criteria. documented in this encounter [facility] Progress note 09-04-2023 Note Date & Type Note Facility 09-04-2023 Note HNO ID: [id number] Author: Ivon Christopher APRN.INSPECTOR GOLF BALL Service: ? Author Type: Nurse Practitioner Type: Progress Notes Filed: 09/04/2023 12:01 PM Note Text: Subjective The history is provided by the patient. No speech and language tutor was used. HPI Tom Salazar is a 53 year old male who [...] have confirmed and edited as necessary, the [facility] Review of Systems Constitutional: Negative for chills [...] in 12-24 hours with results, available on [employer] pr[employer] mucinex - COVID NAAT, UPPER RESPIRATORY, ROUTINE Diagnosis and treatment plan were discussed and questions were answered to the patient's satisfaction. Pt acknowledged understanding of concepts and follow up plan. Specific signs and symptoms that would indicate the need for higher level of care were discussed in detail warranting prompt ER evaluation. Ivon Christopher APRN.TYRON [facility] Instructions 09-04-2023 Patient Instructions Note Date & Type Note Facility 09-04-2023 Instructions Ivon Christopher APRN.INSPECTOR GOLF BALL - 09/04/2023 11:56 AM EDT covid and influenza test ordered You will be notified in 12-24 hours, results available on [employer] Home isolation until results are back Rest, [...] with cough and to thin out mucus Cesar Bonilla 1-2 every 8 hours, do not combine this with robitussin or delsym * Seek medical care immediately, call 911, go to ER if you have chest pain, difficulty breathing, shortness of breath, inability to swallow. documented in this encounter [facility] History of Present illness Narrative 09-04-2023 Ivon Christopher APRN.TYRON - 09/04/2023 11:55 AM EDT Note Date & Type Note Facility 09-04-2023 History of Presen t illness Narrative Subjective The history is provided by the patient. No speech and language tutor was used. HPI Tom Salazar is a 53 year old male who [...] have confirmed and edited as necessary, the [facility] Review of Systems Constitutional: Negative for chills [...] in 12-24 hours with results, available on [employer] mucinex - COVID NAAT, UPPER RESPIRATORY, ROUTINE Diagnosis and treatment plan were discussed and questions were answered to the patient's satisfaction. Pt acknowledged understanding of concepts and follow up plan. Specific signs and symptoms that would indicate the need for higher level of care were discussed in detail warranting prompt ER evaluation. Ivon Christopher APRN.CNP documented in this encounter [facility] History of Present illness Narrative 05-05-2022 [...] agrees with plan of care. Dilan Squires APRN.TYRON documented in this encounter [facility] Evaluation note Note Date & Type Note Facility Evaluation note Diagnosis Procedure not carried out- Primary Procedure not carried out for other reasons documented in this encounter [facility] Evaluation note Note Date & Type Note Facility Evaluation note No assessment information availa ble [facility] Work Phone: Evaluation note Note Date & Type Note Facility Evaluation note Diagnosis URI with cough and congestion- Primary documented in this encounter [facility] Reason for referral (narrative) Note Date & Type Note Facility Reason for referral (narrative) No reason for referral information available [facility] Work Phone: Advance Directives Advance Directive Response Recorded Date/ Time Living Will No September 26, 019 12:36pm Power of Anvil Worker No September 26, 2019 12:36pm Health Concerns Infection Onset Date Last Indicated Resolved Time COVID-19 Rule-Out 09/04/2023 09/04/2023 Infection Onset Date Last Indicated Resolved Time COVID-19 Rule-Out 09/04/2023 09/04/2023 09/05/2023 1:52 AM EDT COVID-19 Confirmed 09/04/2023 09/04/2023 Summary Purpose Family History No Family History Records FoundNo Family History Records Found Additional Source Comments Source Comments (unrecognize d section and content) In the event this informatio n is protected by the Federal Confidentiality of Alcohol and Drug Abuse Patient Records regulations: The Federal rules restrict any use of the information to criminally investigate or prosecute any alcohol or drug abuse patient.[facility] the event this information is protected by the Federal Confidentiality of Alcohol and Drug Abuse Patient Records regulations: The Federal rules restrict any use of the information to criminally investigate or prosecute any alcohol or drug abuse patient.[facility] the event this information is protected by the Federal Confidentiality of Alcohol and Drug Abuse Patient Records regulations: The Federal rules restrict any use of the information to criminally investigate or prosecute any alcohol or drug abuse patient.[facility] Care Teams (unrecognized sec tion and content) Sales Management Intern Relationship Specialty Start Date End Date Dereje Zavala [address] [place] [id number] PCP - General 03/02/05 Sales Management Intern Relationship Specialty Start Date [facility] [address] [place] [id number] PCP - General 03/02/05 Sales Management Intern Relationship Specialty Start Date End Date [facility] [address] [place] [id number] PCP - General 03/02/05 Team Status: Active Member Role Status Dates Dr. Sheldon Khan MD Family Provider Active Dr. Sheldon Khan MD Primary Care Provider Active Team Status: Inactive Member Role Status Dates Dr. Sheldon Khan MD Primary Care Provider Active Start: December 23, 2024 End: December 23, 2024 Dr. Sheldon Khan MD Attending Provider Active St art: December 23, 2024 End: December 23, 2024 Dr. Sheldon Khan MD Referring Provider Active St art: December 23, 2024 End: December 23, 2024 Team Status: Inactive Member Role Status Dates Dr. Sheldon Khan MD Primary Care Provider Active Start: January 14, 2025 End: January 14, 2025 Dr. Sheldon Khan MD Attending Provider Active St art: January 14, 2025 End: January 14, 2025 Dr. Sheldon Khan MD Referring Provider Active St art: January 14, 2025 End: January 14, 2025 Team Status: Active Member Role Status Dates Dr. Sheldon Khan MD Primary Care Provider Active Start: January 22, 2025 Dr. Sheldon Khan MD Attending Provider Active St art: January 22, 2025 Dr. Sheldon Khan MD Referring Provider Active St art: January 22, 2025 Team Status: Inactive Member Role Status Dates Dr. Sheldon Khan MD Primary Care Provider Active Start: January 22, 2025 End: January 22, 2025 Dr. Sheldon Khan MD Attending Provider Active St art: January 22, 2025 End: January 22, 2025 Dr. Sheldon Khan MD Referring Provider Active St art: January 22, 2025 End: January 22, 2025 Goals (unrecognized section and content) Goals may be documented in a n alternate sectionGoals may be documented in an alternate sectionGoals may be documented in an alternate section Reason for Visit (unrecogniz ed section and content) Reason Comments Sinus Problem sinus pressure, drai nage, headache, diarrhea, fatigue and plugged left ear x 3 days Reason Comments Results (unrecognized sect ion and content) No Status Records FoundNo Status Records Found INFORMATION SOURCE (unrecogn ized section and content) DATE CREATED AUTHOR 09/06/2023 [facility] DATE CREATED AUTHOR AUTHOR'S PARISIZ JUNIOR 02/01/2025 [facility] FOR RECORDS PERTAINING TO PATIENTS WHO ARE [...] BE BASED ON THE PRIMARY CLINICAL RECORDS. [employer] [facility]. provides no warranty or guarantee of the accuracy or completeness of information in this document.
== END | disposition home or self-care (01) ==
LOC: MTLAB 15:15
PROVIDERS: PCP Family Medicine; Referring Provider Family Medicine; Visit Provider Family Medicine
DX: E66.01 Morbid (severe) obesity due to excess calories (principal); Z12.5 Encounter for screening for malignant neoplasm of prostate
CPT/HCPCS: 36415; 80053; 80061; 83036; 84153; G0103